=== PATIENT | male | born 1950 | race Caucasian/White ===

== ENCOUNTER → 2016-09-05 | Outpatient (CLI) | payer BC ==
[~2016-09-05] MED LIST: BIOF500T; CHOL1CAP67 PO; CYAN10004 PO; LOSA1TAB38 PO; MULT-884; NRV/5 PEG; OMEGCAP2 PO; OXYC-57 PO; REDCAP2 PO; ZNT/150 PO
--- NOTE | 2016-09-05 08:19 | DIAGNOSTIC IMAGING REPORT ---
ABDOMEN COMPLETE (US) CLINICAL HISTORY: Abnormal liver function tests. Leg pain. COMPARISON STUDY: Biliary ultrasound dated 01/08/2014 FINDINGS: The pancreas is poorly visualized. The liver is of increased echogenicity, likely secondary to hepatic steatosis. There is suspected focal fatty sparing adjacent to the gallbladder fossa. Multiple gallstones are visualized. There is no ductal dilatation. The common bile duct measures 5 mm. There is splenomegaly (14.1 cm) The right kidney measures 12.9 cm in length. The left kidney measures 13.4 cm in length. No renal masses are visualized. There is no hydronephrosis. There is no evidence of abdominal aortic dilatation. No abnormality IVC are visualized. IMPRESSION: 1. Cholelithiasis. No evidence of ductal dilatation 2. Increased hepatic echogenicity, most likely secondary to hepatic steatosis 3. Splenomegaly 4. Suboptimal visualization of the pancreas Electronically signed by: Nhan Spaulding M.D. 09/05/2016 8:17 AM
[2016-09-05 09:41] LABS: BASO % 0.4 %; BASO ABS # 0.02 K/uL (0-0.2); COMPLETE YES; EOS % 3.1 %; HEMATOCRIT 44.7 % (42-52); IG% 0.2 %; LYMPH % 21.4 %; LYMPH ABS # 1.16 K/uL (1.2-3.4); MEAN CELL VOLUME 90.9 fL (80-100); MEAN CORPUSCULAR HEMOGLOBIN 32.9 pg (25-34); MEAN CORPUSCULAR HGB CONC 36.2 g/dl (32-36); MEAN PLATELET VOLUME 10.8 fL (7.4-10.4); MONO % 9.4 %; NEUT % 65.5 %; PLATELET COUNT 151 K/uL (130-400); RED BLOOD COUNT 4.92 M/uL (4.7-6.1); WHITE BLOOD COUNT 5.43 K/uL (4.8-10.8)
[2016-09-05 09:54] LABS: ESTIMATED AVERAGE GLUCOSE 97 mg/dl; HA1C FLAG Normal (Normal)
[2016-09-05 09:57] LABS: ALT/SGPT 48 U/L (12-78); BLOOD UREA NITROGEN 20 mg/dl (7-18); BUN/CREATININE RATIO 18.5 (10-20); CALCIUM 8.9 mg/dl (8.5-10.1); CARBON DIOXIDE 22 mmol/L (21-32); CHLORIDE 111 mmol/L (98-107); CHOLESTEROL 200 mg/dl (0-200); GLUCOSE 117 mg/dl (70-99); POTASSIUM 4.1 mmol/L (3.5-5.1); SODIUM 144 mmol/L (136-145); TRIGLYCERIDES 109 mg/dl (0-150); VERY LOW DENSITY LIPOPROT CALC 22 mg/dl
[2016-09-05 10:04] LABS: URINE APPEARANCE CLEAR (CLEAR); URINE BILIRUBIN NEG (NEG); URINE COLOR YELLOW; URINE NITRITE NEG (NEG); URINE SPECIFIC GRAVITY 1.024 (1.000-1.030); UROBILINOGEN NEG (NEG)
[2016-09-05 10:08] LABS: ALB/GLOB RATIO 1.3 (0.9-2); ALKALINE PHOSPHATASE 59 U/L (45-117); AST/SGOT 19 U/L (15-37); CHOLESTEROL/HDL RATIO 6.3; HDL CHOLESTEROL 32 mg/dl; LDL CHOLESTEROL CALCULATED 146 mg/dl
[2016-09-05 10:17] LABS: MANUAL MICROSCOPIC REQUIRED? NO; REVIEW REQ? NO
== END | disposition home or self-care (01) ==
LOC: C.ULTR 07:01
PROVIDERS: ATTEND Internal Medicine
DX: K76.0 Fatty (change of) liver, not elsewhere classified (principal); R10.9 Unspecified abdominal pain; R79.89 Other specified abnormal findings of blood chemistry; K80.20 Calculus of gallbladder without cholecystitis without obstruction; R93.2 Abnormal findings on diagnostic imaging of liver and biliary tract; R16.1 Splenomegaly, not elsewhere classified

== ENCOUNTER 2016-09-08 08:21 | Emergency (ER) | payer BC ==
[~2016-09-08] VITALS: Ht 195.6 cm; Wt 115.9 kg
[~2016-09-08 08:21] MED LIST changes: -OXYC-57 PO
[2016-09-08 08:24] VITALS: TEMP 36.8; Ht 195.6 cm; Wt 115.9 kg
--- NOTE | 2016-09-08 09:20 | EMERGENCY ROOM VISIT NOTE ---
History Report prepared by Juan Antonio: Vijaya Goodman Under the Supervision of: Dr. Vaibhav Barrientos M.D. First contact with patient: 09:02 Chief Complaint: ABDOMINAL PAIN Stated Complaint: RIGHT ABD. PAIN Nursing Triage Summary: right side abdominal pain for the past 4 weeks. "If I move the wrong way it will put me to my knees." I had ultrasound and blood work done this week and everything was normal. History of Present Illness The patient is a 65 year old male who presents to the Emergency Room with complaints of intermittent right sided abdominal pain that began four weeks ago. He currently rates his discomfort as a 7/10 in severity, stating that his pain this week has become sharp in nature. The patient states that he had an ultrasound and blood work done this week, but notes that everything came back normal. He states that the pain seems to be positional, noting that he typically can go about daily strenuous activities, but states that if he twists the wrong way, he develops the pain. The patient states that after working he twisted the wrong way and noted difficulty going home. He states that lying flat on his back worsens the pain. The patient additionally notes that he bent over to put his shoes on last evening and noted that he developed the pain. He states that he has a CT scan scheduled for next week. The patient states that he doesn't typically eat fried, fatty foods. He states that he has been having more reflux recently. The patient denies his discomfort today being similar to his history of reflux. Source of History: patient Onset: four weeks ago Position: abdomen (right sided) Symptom Intensity: 7/10 Quality: sharp Timing: intermittent Review of Systems All systems have been listed, reviewed, and are negative other than those previously mentioned. Please see Additional Medical History Sheet. Past Medical & Surgical Medical Problems: (1) Hypertension Surgical Problems: (1) S/P hernia repair (2) S/P knee surgery Family History Diabetes mellitus Heart disease Hypertension Social History Smoking Status: Never Smoker Smokeless Tobacco Use: No Alcohol Use: none Marital Status: Housing Status: lives with significant other Occupation Status: retired Current/Historical Medications Scheduled Amlodipine Besylate (Amlodipine Besylate), 2.5 MG PEG DAILY Losartan Potassium (Cozaar), 100 MG PO DAILY Ranitidine Hcl (Zantac), 150 MG PO BID Scheduled PRN Oxycodone/Acetaminophen 5MG/325MG (Percocet 5MG/325MG), 1-2 TABLETS PO Q4H PRN for Pain Allergies Coded Allergies: Pravastatin (Verified Allergy, Unknown, ., 09/08/16) Simvastatin (Unverified Allergy, Unknown, UNKNOWN, 09/08/16) Physical Exam Vital Signs Date Time Temp Pulse Resp B/P Pulse Ox O2 Delivery O2 Flow Rate FiO2 09/08/16 12:42 67 18 150/80 98 09/08/16 11:55 66 18 148/79 96 Room Air 09/08/16 10:02 59 18 156/80 98 Room Air 09/08/16 08:24 36.8 73 18 144/81 98 Room Air Physical Exam GENERAL: Patient awake, alert, oriented x 3. Patient follows commands. Patient does not appear toxic. Patient is adequately hydrated and well- nourished. SKIN: No erythema, pallor, cyanosis or rash HEENT: Normal head, pupils equal, reactive to light and accommodation. LUNGS: Clear to auscultation. No wheezes, no rales, no rhonchi. HEART: No murmurs. No gallops. No rubs ABDOMEN: No masses, no rebound, no hepatomegaly or splenomegaly. EXTREMITIES: No signs of trauma or infection. No pedal or pretibial edema. No calf or thigh tenderness. NEUROLOGIC: Cranial nerves II-XII within normal limits. No gross motor sensory function deficits. Medical Decision & Procedures ER Provider Diagnostic Interpretation: CT results are interpretations by the radiologist and per my review. CT OF THE ABDOMEN AND PELVIS WITH CONTRAST CLINICAL HISTORY: Right-sided abdominal pain. COMPARISON STUDY: Abdominal ultrasound September 05, 2016. TECHNIQUE: Following IV administration of 117 mL of Optiray-320, axial images of the abdomen and pelvis were obtained from the lung bases to the proximal femurs. Images were reviewed in the axial, sagittal, and coronal planes. IV contrast was administered without complication. Oral contrast was administered. CT DOSE: 1258.24 mGy.cm FINDINGS: The heart is mildly enlarged. There is suspected fatty infiltration of the liver. No hepatic lesions are identified. There is borderline splenomegaly. Multiple gallstones are noted within the gallbladder. The gallbladder is not distended. There is no pericholecystic infiltration. The adrenal glands, kidneys and pancreas are normal. There is no hydronephrosis or hydroureter. No ureteral calculi are identified. The caliber and wall thickness of small and large bowel are normal. The appendix is normal. There is extensive sigmoid diverticulosis without evidence for acute diverticulitis. There is no ascites or lymphadenopathy. A fat-containing left inguinal hernia is present. IMPRESSION: 1. No acute process within the abdomen or pelvis. 2. Cholelithiasis. 3. Fat-containing left inguinal hernia. 4. Extensive colonic diverticulosis without evidence for acute diverticulitis. Electronically signed by: Vinny Mcgee M.D. 09/08/2016 12:01 PM Dictated Date/Time: 09/08/2016 11:54 AM Laboratory Results 09/08/16 09:00 Red Blood Count 4.88, Mean Corpuscular Volume 90.0, Mean Corpuscular Hemoglobin 33.0, Mean Corpuscular Hemoglobin Concent 36.7, Mean Platelet Volume 10.0, Neutrophils (%) (Auto) 68.0, Lymphocytes (%) (Auto) 19.8, Monocytes (%) (Auto) 9.1, Eosinophils (%) (Auto) 2.4, Basophils (%) (Auto) 0.5, Neutrophils # (Auto) 3.96, Lymphocytes # (Auto) 1.15, Monocytes # (Auto) 0.53, Eosinophils # (Auto) 0.14, Basophils # (Auto) 0.03 09/08/16 09:00 Test 09/08/16 08:47 09/08/16 09:00 Urine Color YELLOW Urine Appearance CLEAR (CLEAR) Urine pH 5.0 (4.5-7.5) Urine Specific [place] 1.013 (1.000-1.030) Urine Protein NEG (NEG) Urine Glucose (UA) NEG (NEG) Urine Ketones NEG (NEG) Urine Occult Blood NEG (NEG) Urine Nitrite NEG (NEG) Urine Bilirubin NEG (NEG) Urine Urobilinogen NEG (NEG) Urine Leukocyte Esterase NEG (NEG) White Blood Count 5.82 K/uL (4.8-10.8) Red Blood Count 4.88 M/uL (4.7-6.1) Hemoglobin 16.1 g/dL (14.0-18.0) Hematocrit 43.9 % (42-52) Mean Corpuscular Volume 90.0 fL (80-100) Mean Corpuscular Hemoglobin 33.0 pg (25-34) Mean Corpuscular Hemoglobin Concent 36.7 g/dl (32-36) Platelet Count 135 K/uL (130-400) Mean Platelet Volume 10.0 fL (7.4-10.4) Neutrophils (%) (Auto) 68.0 % Lymphocytes (%) (Auto) 19.8 % Monocytes (%) (Auto) 9.1 % Eosinophils (%) (Auto) 2.4 % Basophils (%) (Auto) 0.5 % Neutrophils # (Auto) 3.96 K/uL (1.4-6.5) Lymphocytes # (Auto) 1.15 K/uL (1.2-3.4) Monocytes # (Auto) 0.53 K/uL (0.11-0.59) Eosinophils # (Auto) 0.14 K/uL (0-0.5) Basophils # (Auto) 0.03 K/uL (0-0.2) RDW Standard Deviation 42.6 fL (36.4-46.3) RDW Coefficient of Variation 13.2 % (11.5-14.5) Immature Granulocyte % (Auto) 0.2 % Immature Granulocyte # (Auto) 0.01 K/uL (0.00-0.02) Anion Gap 9.0 mmol/L (3-11) Est Creatinine Clear Calc Drug Dose 84.3 ml/min Estimated GFR () 72.1 Estimated GFR (Non- 62.2 BUN/Creatinine Ratio 17.1 (10-20) Calcium Level 9.0 mg/dl (8.5-10.1) Total Bilirubin 1.0 mg/dl (0.2-1) Aspartate Amino Transf (AST/SGOT) 19 U/L (15-37) Alanine Aminotransferase (ALT/SGPT) 46 U/L (12-78) Alkaline Phosphatase 57 U/L (45-117) Total Protein 7.0 gm/dl (6.4-8.2) Albumin 4.0 gm/dl (3.4-5.0) Globulin 3.0 gm/dl (2.5-4.0) Albumin/Globulin Ratio 1.3 (0.9-2) Laboratory results as stated above per my review. ED Course 0902: Past medical records reviewed. The patient was evaluated in room A4B. A complete history and physical examination was performed. 1216: I reevaluated the patient and he is resting comfortably. I discussed the exam findings with him and I discussed the treatment plan. He verbalized complete understanding and agreement. He is ready to go home. Medical Decision Nurses notes reviewed. Medical history sheet reviewed. Differential diagnosis includes but is not limited to: cholelithiasis, cholecystitis, appendicitis, bowel obstruction, musculoskeletal pain, pancreatitis. The patient had a previous ultrasound which was reviewed. Multiple labs and further imaging were performed today. Please see above. The patient does not appear to have other significant pathology other than cholelithiasis and diverticulosis. Liver enzymes are not elevated. White count is not elevated. I believe his pain is coming from his gallbladder. We discussed keeping a food diary. The patient will be given pain medication and will be encouraged to follow-up with his family physician on Saturday. The patient may need surgery in the near future. [place] Drug Monitoring Program Search Results: patient reviewed within database, no issues identified Impression Primary Impression: Cholelithiasis Scribe Attestation The scribe's documentation has been prepared under my direction and personally reviewed by me in its entirety. I confirm that the note above accurately reflects all work, treatment, procedures, and medical decision making performed by me. Departure Information Dispostion Home / Self-Care Prescriptions Oxycodone/Acetaminophen 5MG/325MG (PERCOCET 5MG/325MG) Tab 1-2 TABLETS PO Q4H Y for Pain, #20 TAB Prov: Vaibhav Barrientos M.D. 09/08/16 Referrals Jasvir Garber M.D. (PCP) Forms HOME CARE DOCUMENTATION FORM, IMPORTANT VISIT INFORMATION, My [facility] Patient Instructions A Signature Page Additional Instructions 1-2 Percocet every 4 hours as needed for moderate to severe pain. Follow-up with Dr. Garber on Saturday. Return here sooner if your pain is getting worse or you develop any fever.
[2016-09-08 09:21] LABS: BASO % 0.5 %; BASO ABS # 0.03 K/uL (0-0.2); COMPLETE YES; EOS % 2.4 %; HEMATOCRIT 43.9 % (42-52); IG% 0.2 %; LYMPH % 19.8 %; LYMPH ABS # 1.15 K/uL (1.2-3.4); MEAN CORPUSCULAR HGB CONC 36.7 g/dl (32-36); MONO % 9.1 %; PLATELET COUNT 135 K/uL (130-400); RED BLOOD COUNT 4.88 M/uL (4.7-6.1); WHITE BLOOD COUNT 5.82 K/uL (4.8-10.8)
[2016-09-08 09:22] LABS: URINE APPEARANCE CLEAR (CLEAR); URINE BILIRUBIN NEG (NEG); URINE COLOR YELLOW; URINE NITRITE NEG (NEG); URINE SPECIFIC GRAVITY 1.013 (1.000-1.030); UROBILINOGEN NEG (NEG); ZZUR CULT IF INDIC CLEAN CATCH NO
[2016-09-08 09:26] LABS: MANUAL MICROSCOPIC REQUIRED? NO; REVIEW REQ? NO
[2016-09-08 09:31] LABS: BUN/CREATININE RATIO 17.1 (10-20); CREATININE 1.2 mg/dl (0.60-1.40); POTASSIUM 4.3 mmol/L (3.5-5.1)
[2016-09-08 09:34] LABS: ALB/GLOB RATIO 1.3 (0.9-2)
[2016-09-08] MEDS ORDERED: OPTIRAY 320 IV PRN (10:30)
--- NOTE | 2016-09-08 12:02 | DIAGNOSTIC IMAGING REPORT ---
CT OF THE ABDOMEN AND PELVIS WITH CONTRAST CLINICAL HISTORY: Right-sided abdominal pain. COMPARISON STUDY: Abdominal ultrasound September 05, 2016. TECHNIQUE: Following IV administration of 117 mL of Optiray-320, axial images of the abdomen and pelvis were obtained from the lung bases to the proximal femurs. Images were reviewed in the axial, sagittal, and coronal planes. IV contrast was administered without complication. Oral contrast was administered. CT DOSE: 1258.24 mGy.cm FINDINGS: The heart is mildly enlarged. There is suspected fatty infiltration of the liver. No hepatic lesions are identified. There is borderline splenomegaly. Multiple gallstones are noted within the gallbladder. The gallbladder is not distended. There is no pericholecystic infiltration. The adrenal glands, kidneys and pancreas are normal. There is no hydronephrosis or hydroureter. No ureteral calculi are identified. The caliber and wall thickness of small and large bowel are normal. The appendix is normal. There is extensive sigmoid diverticulosis without evidence for acute diverticulitis. There is no ascites or lymphadenopathy. A fat-containing left inguinal hernia is present. IMPRESSION: 1. No acute process within the abdomen or pelvis. 2. Cholelithiasis. 3. Fat-containing left inguinal hernia. 4. Extensive colonic diverticulosis without evidence for acute diverticulitis. Electronically signed by: Vinny Mcgee M.D. 09/08/2016 12:01 PM Dictated Date/Time: 09/08/2016 11:54 AM
[2016-09-08] MEDS ORDERED: OXYC-57 PO (12:31)
[2016-09-08 12:42] VITALS: BP 150/80; PULSE 67; O2SAT 98
== END 2016-09-08 12:45 | disposition home or self-care (01) ==
LOC: C.EDB 08:23 → C.EDA 12:45
DX: K80.20 Calculus of gallbladder without cholecystitis without obstruction (principal); K57.30 Diverticulosis of large intestine without perforation or abscess without bleeding; I10 Essential (primary) hypertension; Z98.890 Other specified postprocedural states; Z79.899 Other long term (current) drug therapy; Z88.8 Allergy status to other drugs, medicaments and biological substances; Z83.3 Family history of diabetes mellitus; Z82.49 Family history of ischemic heart disease and other diseases of the circulatory system

== ENCOUNTER → 2016-09-21 | Outpatient (CLI) | payer BC ==
[~2016-09-21] MED LIST changes: -BIOF500T; -CHOL1CAP67 PO; -CYAN10004 PO; -MULT-884; -OMEGCAP2 PO; +OXYC-57 PO; -REDCAP2 PO
--- NOTE | 2016-09-21 09:24 | DIAGNOSTIC IMAGING REPORT ---
NUCLEAR MEDICINE HEPATOBILIARY SCAN HISTORY: K80.20 [id number] generalized abdominal pain COMPARISON: Abdominal ultrasound 09/05/2016. TECHNIQUE: Immediately following the intravenous administration of mCi Tc-99m Choletec, dynamic anterior abdominal imaging was performed. FINDINGS: Uniform hepatic tracer accumulation is shown. Prompt intrahepatic biliary excretion is seen. The gallbladder and common bile duct are visualized at 15 minutes. Small bowel visualization was slightly delayed at 70 minutes.. IMPRESSION: 1. No evidence for cystic duct obstruction. 2. Slight delay of small bowel visualization. However, no evidence for common bile duct obstruction. Electronically signed by: Doug Parker M.D. 09/21/2016 9:22 AM Dictated Date/Time: 09/21/2016 9:21 AM
== END | disposition home or self-care (01) ==
LOC: C.NUCL 07:35
PROVIDERS: ATTEND Internal Medicine
DX: K80.20 Calculus of gallbladder without cholecystitis without obstruction (principal); R10.9 Unspecified abdominal pain

== ENCOUNTER → 2017-02-12 | Outpatient (CLI) | payer BC | END | disposition home or self-care (01) | LOC: C.LAB1850 15:59 | PROVIDERS: ATTEND Physician Assistant | DX: M79.672 Pain in left foot (principal) ==

== ENCOUNTER → 2017-04-15 | Outpatient (CLI) | payer BC ==
[~2017-04-15] MED LIST changes: -OXYC-57 PO
[2017-04-15 09:36] LABS: BASO % 0.4 %; BASO ABS # 0.02 K/uL (0-0.2); COMPLETE YES; EOS % 3.1 %; HEMATOCRIT 43.9 % (42-52); IG% 0.2 %; LYMPH % 23.8 %; LYMPH ABS # 1.24 K/uL (1.2-3.4); MEAN CELL VOLUME 92.4 fL (80-100); MEAN CORPUSCULAR HEMOGLOBIN 33.5 pg (25-34); MEAN CORPUSCULAR HGB CONC 36.2 g/dl (32-36); MEAN PLATELET VOLUME 10.1 fL (7.4-10.4); MONO % 7.7 %; NEUT % 64.8 %; PLATELET COUNT 135 K/uL (130-400); RED BLOOD COUNT 4.75 M/uL (4.7-6.1)
[2017-04-15 10:00] LABS: ALT/SGPT 46 U/L (12-78); BLOOD UREA NITROGEN 21 mg/dl (7-18); BUN/CREATININE RATIO 18.9 (10-20); CALCIUM 8.9 mg/dl (8.5-10.1); CARBON DIOXIDE 28 mmol/L (21-32); CHLORIDE 106 mmol/L (98-107); CHOLESTEROL 204 mg/dl (0-200); GLUCOSE 107 mg/dl (70-99); POTASSIUM 4.1 mmol/L (3.5-5.1); SODIUM 139 mmol/L (136-145); TRIGLYCERIDES 133 mg/dl (0-150); VERY LOW DENSITY LIPOPROT CALC 27 mg/dl
[2017-04-15 10:03] LABS: ESTIMATED AVERAGE GLUCOSE 97 mg/dl; HA1C FLAG Normal (Normal)
[2017-04-15 10:06] LABS: ALB/GLOB RATIO 1.3 (0.9-2); ALKALINE PHOSPHATASE 53 U/L (45-117); AST/SGOT 20 U/L (15-37); CHOLESTEROL/HDL RATIO 5.8; HDL CHOLESTEROL 35 mg/dl; LDL CHOLESTEROL CALCULATED 142 mg/dl; PROSTATE SPECIFIC ANTIGEN 0.326 ng/ml (0.000-4.000)
== END | disposition home or self-care (01) ==
LOC: C.LAB1850 07:47
PROVIDERS: ATTEND Internal Medicine
DX: K76.0 Fatty (change of) liver, not elsewhere classified (principal); R73.01 Impaired fasting glucose; E78.5 Hyperlipidemia, unspecified; Z12.5 Encounter for screening for malignant neoplasm of prostate

== ENCOUNTER → 2017-11-14 | Outpatient (CLI) | payer BC ==
[2017-11-14 09:47] LABS: ALT/SGPT 51 U/L (12-78); AST/SGOT 18 U/L (15-37); BLOOD UREA NITROGEN 21 mg/dl (7-18); CALCIUM 9.1 mg/dl (8.5-10.1); CARBON DIOXIDE 28 mmol/L (21-32); CHOLESTEROL 198 mg/dl (0-200); CREATININE 1.16 mg/dl (0.60-1.40); GLUCOSE 117 mg/dl (70-99); SODIUM 140 mmol/L (136-145)
[2017-11-14 09:49] LABS: LDL CHOLESTEROL CALCULATED 142 mg/dl
== END | disposition home or self-care (01) ==
LOC: C.LAB1850 07:19
PROVIDERS: ATTEND Internal Medicine
DX: E78.5 Hyperlipidemia, unspecified (principal); I10 Essential (primary) hypertension

== ENCOUNTER 2025-07-14 16:34 | Inpatient (IN) ==
[2025-07-14] MEDS: SODIUM CHLORIDE 0.9% 500 ML IV ONE (17:19)
[2025-07-14] MEDS: ONDANSETRON INJ 2 MG/ML 2 ML VIAL IV STA (17:20)
[2025-07-14] MEDS: KETOROLAC TROMETHAMINE 15 MG/ML VIAL IV STA (17:20)
[2025-07-14 17:37] LABS: Hematocrit (blood only) 43.9 % (42.0-52.0); Hemoglobin 16.2 g/dL (14.0-18.0); Immature Granulocytes # (auto) 0.06 K/uL (0.01-0.20); Immature Granulocytes % (auto) 0.4 %; Mean Corpuscular Hemoglobin 33.1 pg (25.0-34.0); Mean Corpuscular Volume 89.8 fL (80.0-100.0); Platelet Count 143 K/uL (130-400); RDW Standard Deviation 42.9 fL (36.4-46.3); Red Blood Count 4.89 M/uL (4.70-6.10); White Blood Count 16.13 K/ul (4.8-10.8)
[2025-07-14 17:58] LABS: Alanine Aminotransferase 21.0 U/L (7-52); Albumin Level 4.2 gm/dl (3.4-5.0); Alkaline Phosphatase 47.0 U/L (34-104); Anion Gap 8.0 (3-11); Bilirubin,Total 2.8 mg/dl (0.2-1.0); Blood Urea Nitrogen 16.0 mg/dl (6-23); Calcium 9.4 mg/dl (8.6-10.3); Carbon Dioxide 26.0 mmol/L (21-32); Chloride 101.0 mmol/L (98-107); Creatinine Clr Calc Pharmacy 95.7 ml/min; Glucose 138.0 mg/dl (70-99(Fasting)); Lipase 3.0 U/L (11-82); Magnesium 1.8 mg/dl (1.7-2.4); Potassium 4.1 mmol/L (3.5-5.1); Sodium 135.0 mmol/L (136-145); Total Protein 7.1 gm/dl (6.0-8.3)
[2025-07-14 18:09] LABS: INR 1.1 (0.9-1.1); Partial Thromboplastin Time 28 Seconds (21-31); Prothrombin Time 11.9 Seconds (9.0-12.0)
[2025-07-14] MEDS: OPTIRAY 320 100ml IV ONE (18:11)
--- NOTE | 2025-07-14 18:58 | CT Scan Report ---
EXAMINATION: CT of the abdomen and pelvis performed after the administration of IV contrast TECHNIQUE: Helical CT images from the lung bases through the symphysis pubis were obtained with contrast. Coronal and sagittal reformatted images were generated at a workstation for further assessment. Dose reduction techniques were achieved by using automatic exposure control and/or adjustment of mA and/or kV according to patient size and/or use of iterative reconstruction technique. COMPARISON: 07/12/2025 HISTORY: Abdominal pain FINDINGS: Lower chest: No consolidation. No pleural effusion or pneumothorax. Liver: No suspicious liver lesions. Portal veins appear patent. Gallbladder: The gallbladder is distended and filled with stones. Mild free fluid is seen between the gallbladder and liver (note this was not definitely seen on ultrasound). Inflammatory fat stranding surrounds the gallbladder. Spleen: Enlarged measuring 13.9 cm Pancreas: No suspicious pancreatic lesions. The pancreatic duct is not dilated. Adrenal glands: No adrenal nodules. Kidneys: No hydronephrosis or obstructing renal stones. Bladder / Pelvic organs: Unremarkable. Bowel: No bowel obstruction. No abnormal bowel wall thickening. The appendix is unremarkable. Lymph nodes: No retroperitoneal, mesenteric, or pelvic lymphadenopathy. Peritoneum / Retroperitoneum: Mild free fluid in the pelvis. Vessels: No infrarenal aortic aneurysm. Moderate to heavy aortoiliac calcification. Bones and soft tissues: No suspicious lesion in the bones. IMPRESSION: Findings on CT, in conjunction with ultrasound, are consistent with acute cholecystitis. Electronically signed by Yassine Rosales 07-14-2025 6:58 PM
--- NOTE | 2025-07-14 19:00 | Ultrasound Report ---
EXAMINATION: US abdomen right upper quadrant COMPARISON: None HISTORY: Abdominal pain TECHNIQUE: The right upper quadrant of the abdomen was scanned in standard fashion with specialized ultrasound transducers using both sosa scale and limited color Doppler techniques. Findings: Liver: The liver demonstrates normal homogeneous echotexture. No evidence of a focal hepatic mass or intrahepatic biliary ductal dilatation. The main portal vein is patent with antegrade flow. The liver is enlarged measuring 18.5 cm. Gallbladder: Numerous calcified stones and sludge are noted in the gallbladder. Increased gallbladder distention measuring 4.2 cm transverse. Gallbladder wall does not appear significantly thickened, measuring up to 3 mm. Sonographic Salgado sign performed by the technologist is negative. The patient has reportedly been given pain medication. Bile Ducts: Both the intra- and extrahepatic biliary system are of normal caliber. The common bile duct measures mm in diameter. Pancreas: Not visualized due to shadowing bowel gas Right kidney: Normal echotexture, without mass or hydronephrosis. Right kidney craniocaudal dimension: Fluid: No evidence of ascites or pleural effusions. Impression: 1. Findings on ultrasound, in conjunction with CT are consistent with acute cholecystitis. Electronically signed by Yassine Rosales 07-14-2025 6:58 PM
[2025-07-14] MEDS: cefTRIAXone SODIUM 2,000 MG/50 ML BAG IV STA (19:19)
--- NOTE | 2025-07-14 20:08 | History & Physical Report ---
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 His evaluation is significant for leukocytosis 16.13 with bilirubin of 2.9 and direct bilirubin 0.6, otherwise LFTs normal. Lipase is 3. CTAP and GBUS both consistent with acute cholecystitis. Admission for management of acute cholecystitis with IV antibiotics, failure outpatient treatment. 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 Returning for worsening abdominal pain with N/V. Elevated WBC + bilirubin (prior bili elevations as well, CTAP w/o dilated ducts). Not meeting criteria for sepsis. Received ceftriaxone + metro IV in ED. Was placed on Augmentin, took 2 doses. Admission for IV abx. - CBC leukocytosis 16.13; total bilirubin 2.8, direct bilirubin 0.6, LFTs otherwise unremarkable; lipase 3 - CBC, BMP, LFTs am - CTAP and GBUS consistent with acute cholecystitis - NPO - IVF LR @ 125 mL/h (last echo 10/2024, EF 65 to 70%) - Zofran prn N/V - Acetaminophen prn fever/pain, Dilaudid prn severe pain - Metronidazole + cefepime IV -- recent hospital visit, slightly broader coverage at admission -- adjust as medically appropriate - Gen sx consulted - appreciate input + recs #HTN- Pressures stable at time of admission; Carvedilol, losartan - continue once diet ordered #Radiculopathy- Gabapentin - continue once diet ordered #HLD- Rosuvastatin - continue once diet ordered Dispo: Admit, med/sx VTE Prophylaxis: SCDs - add chemical prophylaxis as appropriate, pending ? surgical interventions This document was dictated utilizing [employer]. Please excuse any grammatical errors that may be secondary to use of this software. 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 He was seen in the ED for such and diagnosed with diverticulosis, possible early diverticulitis and sent home on oral antibiotics and pain management. He took 2 days of antibiotics. The day of arrival, in the morning he started to have pain more localized to the right side of his abdomen that was constant in nature, occasionally worsening in waves. At its worst, it is a 7 out of 10 on the pain scale and at present it is around a 6 out of 10 on the same pain scale. He has had nausea but no vomiting. No diarrhea or constipation. He has been taking his temperature throughout the day, no fevers reported. He denies chest pain, SOB, palpitations, vomiting/diarrhea/constipation, URI symptoms, LUTS, fever/chills, numbness/tingling, weakness, syncope, or falls. Recalls having similar pain approximately 5 years ago and was diagnosed with cholelithiasis that was nonobstructing in nature. Has not had something of this significance previously however. ED evaluation reveals CBC with leukocytosis 16.13, H&H stable; PT/INR; CMP sodium 135, ratio 20.8, glucose 138, bilirubin 2.9, direct bilirubin 0.6, lipase 3; CTAP acute cholecystitis; GBUS acute cholecystitis.; Provided with 500 mL NSS, Zofran 4 mg IV, metronidazole 50 mg IV, ketorolac 15 mg IV, and ceftriaxone 2 g IV in ED. Please see Dr. Del Angel's attestation for adjustments/additions to treatment plan. Allergies Allergy/AdvReac Type Severity Reaction Status Date / Time pravastatin AdvReac Intermediate Muscle Pain Verified 07/16/25 11:20 simvastatin AdvReac Intermediate Muscle Pain Verified 07/16/25 11:20 Home Medications Medication Instructions Recorded Confirmed Type cyanocobalamin (vitamin B-12) 1,000 mcg PO QAM 12/08/18 07/14/25 History 1,000 mcg tablet (Vitamin B-12) [id number] 5 mg-zeaxanth 1 cap PO DAILY 07/17/24 07/14/25 History 1 mg-bilberry 7.5 mg-herbal capsule ([email or web address] Formula) cholecalciferol (vitamin D3) 50 50 mcg PO DAILY 07/24/24 07/14/25 History mcg (2,000 unit) capsule losartan 100 mg tablet 100 mg PO QAM #90 tabs 09/30/24 07/14/25 Rx doxycycline hyclate 100 mg capsule 100 mg PO BID PRN tick bites 02/04/25 07/14/25 History gabapentin 100 mg capsule 100 mg PO HS #30 caps 05/21/25 07/14/25 Rx carvedilol 6.25 mg tablet 6.25 mg PO BID #60 tabs 06/03/25 07/14/25 Rx amoxicillin 875 mg-potassium 1 tab PO BID #14 tabs 07/13/25 07/14/25 Rx clavulanate 125 mg tablet metoclopramide HCl 5 mg tablet 5 mg PO DAILY PRN nausea and 07/13/25 07/14/25 Rx vomiting #20 tabs oxycodone 5 mg tablet 5 mg PO Q6H PRN pain #10 tabs 07/13/25 07/14/25 Rx rosuvastatin 20 mg tablet 20 mg PO HS 07/14/25 07/14/25 History Past Med/Surg History Problem List S/P laparoscopic cholecystectomy Total bilirubin, elevated Cholecystitis, acute (Acute) Nausea (Acute) Sigmoid thickening (Acute) Abdominal pain (Acute) Mild ascending aorta dilatation Piriformis syndrome of left side Trochanteric bursitis History of atrial fibrillation 2002 in s/o thyroid storm. had successful cardioversion. Myofascial pain Pruritus Concern about skin cancer without diagnosis Rash and nonspecific skin eruption Lumbar degenerative disc disease Spinal stenosis of lumbar region Vitamin B12 deficiency Elevated ferritin Hyperglycemia History of colon polyps Hypertension (Chronic) Lumbar radiculopathy (Acute) Hyperlipidemia (Acute) GERD without esophagitis (Acute) Hip pain Medical History Encounter for pre-operative examination Sciatica Hypertension Thyroid disease History of gout Osteoarthritis History of migraine History of cardioversion Atrial fibrillation DX >20 YEARS AGO - EPISODE X 1 2/2 THYROID STORM - S/P CARDIOVERSION - NO ISSUES SINCE - DOES NOT FOLLOW W/ CARDIO History of thyroid storm >20 YEARS AGO - DENIES CURRENT ISSUES Hyperlipidemia Hypertension Surgical History History of left inguinal hernia repair History of colonoscopy with polypectomy History of umbilical hernia repair History of wisdom tooth extraction History of hand surgery LEFT Status post arthroscopic surgery of right knee History of detached retina repair History of cataract surgery History of repair of rotator cuff LEFT Family History Brother Family history of diabetes mellitus Mother Family history of diabetes mellitus Brother Family history of esophageal cancer Myocardial infarction Family/Other No problems noted. 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: No Beliefs That Will Affect Care: None marital status: Current Living Situation: Spouse current occupational status: retired How many Children do You have: 2 Other Information That Helps Us Care for You: No Feels Safe at Home: Yes Safety Concerns: Feels Safe At This Time Childhood Exposure to Second-Hand Smoke: Yes Diet: regular Dental Care, Regularly: Yes Physical Activity Frequency: Daily Physical Activity Frequency Comment: yard work/ shop work/ walking Seatbelt Use: always Sunscreen Use: Yes (sometimes) Assistive Devices: Cane Review of Systems Review of Systems: All systems reviewed & are unremarkable except as noted in Subjective Physical Exam Physical Exam: General: No acute distress Skin: Warm and dry Head: Normocephalic, atraumatic Eyes: PERRL, conjunctivae clear, sclera non-icteric ENT: External ear and ear canal without swelling; nose atraumatic; good dentition, tongue normal appearance, pharynx normal Neck: Supple, no LAD Cardio: RRR, no M/G/R, S1 and S2 normal Resp: No respiratory distress, Lungs CTA in all lobes bilaterally, no wheezes, rales, or rhonchi Abdomen: Soft, symmetric, mild tenderness RUQ; No masses or hepatosplenomegaly; Bowel sounds normoactive MSK: No deformities; pulses palpable and equal; no edema. Neuro: Awake, alert; Sensation intact bilaterally; CN grossly intact Psych: Appropriate mood and affect; good judgement and insight. Patient's present in room at time of visit. Results & Data Results & Data Vital Signs (Past 12 Hours) Vital Signs Temp Pulse Pulse Resp BP BP Pulse Ox 07/14/25 18:00 70 17 167/100 H 90 07/14/25 17:10 73 18 92 07/14/25 17:10 73 21 166/92 H 92 07/14/25 16:57 79 07/14/25 16:42 36.4 C L 85 18 154/89 H 92 O2 Del Method 07/14/25 18:00 Room Air 07/14/25 17:10 Room Air 07/14/25 17:10 Room Air 07/14/25 16:57 07/14/25 16:42 Room Air Laboratory Results 07/14/25 17:20 WBC 16.13 H RBC 4.89 Hgb 16.2 Hct 43.9 MCV 89.8 MCH 33.1 MCHC 36.9 H RDW Std Deviation 42.9 RDW Coeff of Andrea 13.2 Plt Count 143 MPV 10.2 Immature Gran % (Auto) 0.4 Neut % (Auto) 89.0 Lymph % (Auto) 3.2 Coleman % (Auto) 7.1 Eos % (Auto) 0.1 Baso % (Auto) 0.2 Neut # (Auto) 14.37 H Lymph # (Auto) 0.51 L Coleman # (Auto) 1.15 H Eos # (Auto) 0.01 Baso # (Auto) 0.03 Immature Gran # (Auto) 0.06 PT 11.9 INR 1.1 APTT 28 PTT Ratio 1.0 Sodium 135 L Potassium 4.1 Chloride 101 Carbon Dioxide 26 Anion Gap 8 BUN 16 Creatinine 0.77 D Est Cr Clr Drug Dosing 95.7 eGFR 92.78 BUN/Creatinine Ratio 20.8 H Glucose 138 H Calcium 9.4 Magnesium 1.8 Total Bilirubin 2.8 H D Direct Bilirubin 0.6 H AST 15 ALT 21 Alkaline Phosphatase 47 Total Protein 7.1 Albumin 4.2 Lipase 3 L Diagnostic Findings Abdomen/Pelvis CT 07/14/25 16:55 EXAMINATION: CT of the abdomen and pelvis performed after the administration of IV contrast TECHNIQUE: Helical CT images from the lung bases through the symphysis pubis were obtained with contrast. Coronal and sagittal reformatted images were generated at a workstation for further assessment. Dose reduction techniques were achieved by using automatic exposure control and/or adjustment of mA and/or kV according to patient size and/or use of iterative reconstruction technique. COMPARISON: 07/12/2025 HISTORY: Abdominal pain FINDINGS: Lower chest: No consolidation. No pleural effusion or pneumothorax. Liver: No suspicious liver lesions. Portal veins appear patent. Gallbladder: The gallbladder is distended and filled with stones. Mild free fluid is seen between the gallbladder and liver (note this was not definitely seen on ultrasound). Inflammatory fat stranding surrounds the gallbladder. Spleen: Enlarged measuring 13.9 cm Pancreas: No suspicious pancreatic lesions. The pancreatic duct is not dilated. Adrenal glands: No adrenal nodules. Kidneys: No hydronephrosis or obstructing renal stones. Bladder / Pelvic organs: Unremarkable. Bowel: No bowel obstruction. No abnormal bowel wall thickening. The appendix is unremarkable. Lymph nodes: No retroperitoneal, mesenteric, or pelvic lymphadenopathy. Peritoneum / Retroperitoneum: Mild free fluid in the pelvis. Vessels: No infrarenal aortic aneurysm. Moderate to heavy aortoiliac calcification. Bones and soft tissues: No suspicious lesion in the bones. IMPRESSION: Findings on CT, in conjunction with ultrasound, are consistent with acute cholecystitis. Electronically signed by Yassine Rosales 07-14-2025 6:58 PM Gallbladder Ultrasound 07/14/25 17:11 EXAMINATION: US abdomen right upper quadrant COMPARISON: None HISTORY: Abdominal pain TECHNIQUE: The right upper quadrant of the abdomen was scanned in standard fashion with specialized ultrasound transducers using both sosa scale and limited color Doppler techniques. Findings: Liver: The liver demonstrates normal homogeneous echotexture. No evidence of a focal hepatic mass or intrahepatic biliary ductal dilatation. The main portal vein is patent with antegrade flow. The liver is enlarged measuring 18.5 cm. Gallbladder: Numerous calcified stones and sludge are noted in the gallbladder. Increased gallbladder distention measuring 4.2 cm transverse. Gallbladder wall does not appear significantly thickened, measuring up to 3 mm. Sonographic Salgado sign performed by the technologist is negative. The patient has reportedly been given pain medication. Bile Ducts: Both the intra- and extrahepatic biliary system are of normal caliber. The common bile duct measures mm in diameter. Pancreas: Not visualized due to shadowing bowel gas Right kidney: Normal echotexture, without mass or hydronephrosis. Right kidney craniocaudal dimension: Fluid: No evidence of ascites or pleural effusions. Impression: 1. Findings on ultrasound, in conjunction with CT are consistent with acute cholecystitis. Electronically signed by Yassine Rosales 07-14-2025 6:58 PM Medications Administered 500 mL NSS Zofran 4 mg IV Metronidazole 50 mg IV Ceftriaxone 2 g IV Ketorolac 50 mg IV Code Status & VTE Plan Code Status Full Supervising Physician Co-Signing Physician Notes Attending addendum: I have physically seen this patient, have supervised the CELESTINA's activities, and agree with the H&P unless as otherwise noted. Assessment and Plan: The patient is a 74-year-old male with past medical history including hypertension, GERD, hyperlipidemia, lumbar radiculopathy, B12 deficiency, mild ascending aortic dilation, and diverticulitis. He presents to the emergency department with worsening abdominal pain over the past 2 days. Workup in the emergency department included CT scan of abdomen pelvis and gallbladder ultrasound, both consistent with acute cholecystitis. Laboratory showed elevated WBC of 16.13 and elevated bilirubin of 2.9 and direct bilirubin 0.6. Lipase is normal at 3. Patient was referred for evaluation for admission to the [facility] with consult to general surgery. Acute cholecystitis- As noted on CT scan abdomen pelvis and gallbladder ultrasound NPO LR at 125 mL/h Zofran 4 mg IV every 6 hours as needed Acetaminophen 1 g IV every 8 hours as needed for mild pain or fever Dilaudid 0.25 mg IV every 3 hours as needed for moderate to severe pain Cefepime and Flagyl IV Consult general surgery Hypertension- Resuming carvedilol and losartan after surgery. Hyperlipidemia- Resume rosuvastatin after surgery Radiculopathy- Resume gabapentin after surgery PG Care Time/CCT Total # of Minutes Spent Total Time Spent with Patient: Total time spent is greater than 50% in coordination of care (as documented) at patient's floor/unit and/or counseling patient: Coding Level of Care Code 69346 INT INP/OBS CARE MIN Diagnoses Cholecystitis, acute K81.0
[2025-07-14] MEDS ORDERED: ONDANSETRON INJ 2 MG/ML 2 ML VIAL IV PRN (20:41)
[2025-07-14] MEDS: metroNIDAZOLE 500 MG/100 ML BAG IV STA (21:00)
[2025-07-14] MEDS: HYDROmorphone INJ 0.5 MG/0.5 ML SYR IV PRN (21:20)
[2025-07-14] MEDS: ACETAMINOPHEN 1,000 MG/100 ML VIAL IV PRN (21:20)
[2025-07-14] MEDS: MELATONIN 3 MG TAB PO PRN (21:45)
[2025-07-14] MEDS: LACTATED RINGER'S 1,000 ML IV SCH (22:55)
--- NOTE | 2025-07-15 00:47 | Emergency Department Note ---
History of Present Illness General Chief Complaint: Abdominal Pain Stated Complaint: ABD PAIN, NAUSEA Time Seen by Provider: 07/14/25 16:52 History of Present Illness Provider Complaint: abdominal pain Onset (ago): 2 day(s) Pain Consistency: intermittent Location: RUQ Radiation: RLQ Severity: moderate Maximum Pain Intensity: 5 Current Pain Intensity: 5 Quality: + stabbing and + sharp Relieved By: + nothing Exacerbated By: + eating Context: + recent antibiotic use (Patient states he is currently on antibiotics for diverticulitis.); no foreign travel, no possible food poisoning, no sick contacts, no recent surgery/procedure or no recent injury Associated Symptoms: + nausea; no vomiting, no diarrhea, no fever, no chills, no constipation, no dysuria, no hematemesis, no hematuria, no headache, no chest pain and no breathing difficulty Home Medications Medication Instructions Recorded Confirmed Type cyanocobalamin (vitamin B-12) 1,000 mcg PO QAM 12/08/18 07/14/25 History 1,000 mcg tablet (Vitamin B-12) [id number] 5 mg-zeaxanth 1 cap PO DAILY 07/17/24 07/14/25 History 1 mg-bilberry 7.5 mg-herbal capsule ([facility] Formula) cholecalciferol (vitamin D3) 50 50 mcg PO DAILY 07/24/24 07/14/25 History mcg (2,000 unit) capsule losartan 100 mg tablet 100 mg PO QAM #90 tabs 09/30/24 07/14/25 Rx doxycycline hyclate 100 mg capsule 100 mg PO BID PRN tick bites 02/04/25 07/14/25 History gabapentin 100 mg capsule 100 mg PO HS #30 caps 05/21/25 07/14/25 Rx carvedilol 6.25 mg tablet 6.25 mg PO BID #60 tabs 06/03/25 07/14/25 Rx amoxicillin 875 mg-potassium 1 tab PO BID #14 tabs 07/13/25 07/14/25 Rx clavulanate 125 mg tablet metoclopramide HCl 5 mg tablet 5 mg PO DAILY PRN nausea and 07/13/25 07/14/25 Rx vomiting #20 tabs oxycodone 5 mg tablet 5 mg PO Q6H PRN pain #10 tabs 07/13/25 07/14/25 Rx rosuvastatin 20 mg tablet 20 mg PO HS 07/14/25 07/14/25 History Allergies Allergy/AdvReac Type Severity Reaction Status Date / Time pravastatin AdvReac Intermediate Muscle Pain Verified 07/14/25 19:33 simvastatin AdvReac Intermediate Muscle Pain Verified 07/14/25 19:33 Past Med/Surg History Problem List (Updated 07/15/25 @ 00:53 by Jorge Bermudez MD) Cholecystitis, acute (Acute) Nausea (Acute) Sigmoid thickening (Acute) Abdominal pain (Acute) Mild ascending aorta dilatation Piriformis syndrome of left side Trochanteric bursitis History of atrial fibrillation 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 had successful cardioversion. Myofascial pain Pruritus Concern about skin cancer without diagnosis Rash and nonspecific skin eruption Lumbar degenerative disc disease Spinal stenosis of lumbar region Vitamin B12 deficiency Elevated ferritin Hyperglycemia History of colon polyps Hypertension (Chronic) Lumbar radiculopathy (Acute) Hyperlipidemia (Acute) GERD without esophagitis (Acute) Hip pain Medical History Encounter for pre-operative examination Sciatica Hypertension Thyroid disease History of gout Osteoarthritis History of migraine History of cardioversion Atrial fibrillation DX >20 YEARS AGO - EPISODE X 1 2/2 THYROID STORM - S/P CARDIOVERSION - NO ISSUES SINCE - DOES NOT FOLLOW W/ CARDIO History of thyroid storm >20 YEARS AGO - DENIES CURRENT ISSUES Hyperlipidemia Hypertension Surgical History History of left inguinal hernia repair History of colonoscopy with polypectomy History of umbilical hernia repair History of wisdom tooth extraction History of hand surgery LEFT Status post arthroscopic surgery of right knee History of detached retina repair History of cataract surgery History of repair of rotator cuff LEFT Family History Brother Family history of diabetes mellitus Mother Family history of diabetes mellitus Brother Family history of esophageal cancer Myocardial infarction Family/Other No problems noted. 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 Beliefs That Will Affect Care: None marital status: Current Living Situation: Spouse current occupational status: retired How many Children do You have: 2 Other Information That Helps Us Care for You: No Feels Safe at Home: Yes Safety Concerns: Feels Safe At This Time Childhood Exposure to Second-Hand Smoke: Yes Diet: regular Dental Care, Regularly: Yes Physical Activity Frequency: Daily Physical Activity Frequency Comment: yard work/ shop work/ walking Seatbelt Use: always Sunscreen Use: Yes (sometimes) Assistive Devices: Cane and Glasses Physical Exam 2 Vital Signs: Vital Signs - 24 hr 07/14/25 16:42 07/14/25 16:57 07/14/25 17:10 Temperature 36.4 C L Temperature Source Temporal Artery Sc an Pulse Rate 85 79 Pulse Rate [Apical ] 73 Pulse Rhythm Pulse Rhythm [Apic al] Regular Pulse Strength [Ap ical] Normal Respiratory Rate 18 21 Respiratory Effort / Characteristics Non-Labored Non-Labored Sponta neous Respiratory Depth Normal Normal Respiratory Patter n Regular Regular Blood Pressure 154/89 H Blood Pressure [Ri ght Arm] 166/92 H Blood Pressure Meagan n 110 Blood Pressure Meagan n [Right Arm] 116 Blood Pressure Pos ition [Right Arm] Pulse Oximetry 92 92 Oxygen Delivery Me thod Room Air Room Air Sepsis Recent Feve r Within 48 Hours No Sepsis New/Unexpla ined Change in Men trey Status N/A Sepsis Action Take n by Nursing No Action Required 07/14/25 17:10 07/14/25 18:00 07/14/25 20:00 Temperature Temperature Source Pulse Rate 73 Pulse Rate [Apical ] 70 77 Pulse Rhythm Regular Pulse Rhythm [Apic al] Regular Regular Pulse Strength [Ap ical] Normal Respiratory Rate 18 17 15 Respiratory Effort / Characteristics Non-Labored Sponta neous Non-Labored Sponta neous Respiratory Depth Normal Normal Respiratory Patter n Regular Regular Blood Pressure Blood Pressure [Ri ght Arm] 167/100 H 159/95 H Blood Pressure Meagan n Blood Pressure Meagan n [Right Arm] 122 116 Blood Pressure Pos ition [Right Arm] Lying Pulse Oximetry 92 90 92 Oxygen Delivery Me thod Room Air Room Air Room Air Sepsis Recent Feve r Within 48 Hours Sepsis New/Unexpla ined Change in Men trey Status Sepsis Action Take n by Nursing Physical Exam: Physical Exam HENT: Exam performed. -Head: Normocephalic and atraumatic. EYES: Conjunctivae and EOM are normal.Right eye exhibits no discharge. Left eye exhibits no discharge. No scleral icterus. NECK: Normal range of motion. Neck supple. No JVD present. No tracheal deviation and normal range of motion present. CV: Normal rate, regular rhythm, normal heart sounds and intact distal pulses. There is no peripheral edema. Palpable radial pulses bue. PULM/CHEST: Effort normal and breath sounds normal. No respiratory distress. No stridor. no wheezes.no rales. ABD: The abdomen is soft.There is tenderness to palpation of the right upper quadrant. There is no rebound, no guarding, Salgado's sign positive and no tenderness at McBurney's point. Rovsig negative MUSC/SKEL: Normal range of motion. There is no peripheral edema, tenderness or deformity. NEURO: Motor and sensation grossly intact. SKIN: Skin is warm and dry. not diaphoretic. Course Course 1651: The patient was evaluated in room B2. A complete history and physical exam was performed Cardiac monitoring: An order was placed for continuous cardiac monitoring. The monitor shows a rate of 70 with sinus rhythm interpreted by hi 1915: Vital signs stable. Labs showed leukocytosis of 16. Hemoglobin 16.2. Coagulation studies are within normal limits. Total bilirubin 2.8 direct bilirubin 0.6. AST 15 ALT 21 lipase within normal limits. Imaging shows cholecystitis. Patient treated with IV antibiotics. Discussed case with general surgery who states to admit to medicine. Administered Medications Hydromorphone HCl (Hydromorphone Inj 0.5 Mg/0.5 Ml Syr) 0.5 mg IV Q3H PRN PRN Reason: Pain (6,7,8,9,10) Stop: 07/28/25 20:40 Last Admin: 07/14/25 21:20 Dose: 0.5 mg Documented By: CARINA Acetaminophen (Ofirmev) 1,000 mg in 100 mls @ 400 mls/hr IV Q8H PRN PRN Reason: Fever/pain Stop: 07/17/25 20:40 Last Infusion: 07/14/25 21:40 Dose: Infused Documented By: Admin: 07/14/25 21:20 Dose: 400 mls/hr Documented By: CARINA Lactated Ringer's (Lr) 1,000 mls @ 125 mls/hr IV .Q8H CHAR Stop: 07/15/25 06:24 Last Admin: 07/14/25 22:55 Dose: 125 mls/hr Documented By: LISANDRO Discontinued Medications Sodium Chloride (Nss) 500 mls @ 999 mls/hr IV .Q31M ONE Stop: 07/14/25 17:25 Last Infusion: 07/14/25 19:06 Dose: Infused Documented By: [facility] Admin: 07/14/25 17:19 Dose: 999 mls/hr Documented By: AIMEE Ceftriaxone Sodium (Rocephin) 2,000 mg in 50 mls @ 100 mls/hr IV NOW STA Stop: 07/14/25 19:38 Last Infusion: 07/14/25 20:24 Dose: Infused Documented By: [facility] Admin: 07/14/25 19:19 Dose: 100 mls/hr Documented By: ELIZABETH Metronidazole (Flagyl) 500 mg in 100 mls @ 100 mls/hr IV NOW STA; Protocol Stop: 07/14/25 20:08 Last Infusion: 07/14/25 22:30 Dose: Infused Documented By: Infusion: 07/14/25 21:42 Dose: 100 mls/hr Documented By: Infusion: 07/14/25 21:20 Dose: 0 mls/hr Documented By: Admin: 07/14/25 21:00 Dose: 100 mls/hr Documented By: CARINA Ioversol (Optiray 320 100ml) 90 ml IV ONCE ONE Stop: 07/14/25 18:12 Last Admin: 07/14/25 18:11 Dose: 90 ml Documented By: RANDY Ketorolac Tromethamine (Ketorolac Tromethamine 15 Mg/Ml Vial) 15 mg IV NOW STA Stop: 07/14/25 16:56 Last Admin: 07/14/25 17:20 Dose: 15 mg Documented By: AIMEE Melatonin (Melatonin 3 Mg Tab) 3 mg PO HS PRN PRN Reason: Sleep Stop: 08/13/25 20:40 Last Admin: 07/14/25 21:45 Dose: 3 mg Documented By: CARINA Ondansetron HCl (Ondansetron Inj 2 Mg/Ml 2 Ml Vial) 4 mg IV NOW STA Stop: 07/14/25 16:56 Last Admin: 07/14/25 17:20 Dose: 4 mg Documented By: AIMEE Medical Decision Making Laboratory Data Attestation: I reviewed the patient's lab results. 07/14/25 17:20 07/14/25 17:20 Lab Results 07/14/25 Range/Units 17:20 WBC 16.13 H (4.8-10.8) K/ul RBC 4.89 (4.70-6.10) M/uL Hgb 16.2 (14.0-18.0) g/dL Hct 43.9 (42.0-52.0) % MCV 89.8 (80.0-100.0) fL MCH 33.1 (25.0-34.0) pg MCHC 36.9 H (32.0-36.0) g/dL RDW Std Deviation 42.9 (36.4-46.3) fL RDW Coeff of Andrea 13.2 (11.5-14.5) % Plt Count 143 (130-400) K/uL MPV 10.2 (9.4-12.4) fL Immature Gran % (Auto) 0.4 % Neut % (Auto) 89.0 % Lymph % (Auto) 3.2 % [place] % (Auto) 7.1 % Eos % (Auto) 0.1 % Baso % (Auto) 0.2 % Neut # (Auto) 14.37 H (1.40-6.50) K/uL Lymph # (Auto) 0.51 L (1.20-3.40) K/uL [place] # (Auto) 1.15 H (0.11-0.59) K/uL Eos # (Auto) 0.01 (0.00-0.50) K/uL Baso # (Auto) 0.03 (0.00-0.20) K/uL Immature Gran # (Auto) 0.06 (0.01-0.20) K/uL PT 11.9 (9.0-12.0) Seconds INR 1.1 (0.9-1.1) APTT 28 (21-31) Seconds PTT Ratio 1.0 Sodium 135 L (136-145) mmol/L Potassium 4.1 (3.5-5.1) mmol/L Chloride 101 (98-107) mmol/L Carbon Dioxide 26 (21-32) mmol/L Anion Gap 8 (3-11) BUN 16 (6-23) mg/dl Creatinine 0.77 D (0.6-1.4) mg/dl Est Cr Clr Drug Dosing 95.7 ml/min eGFR 92.78 BUN/Creatinine Ratio 20.8 H (10-20) Glucose 138 H (70-99(Fasting)) mg/dl Calcium 9.4 (8.6-10.3) mg/dl Magnesium 1.8 (1.7-2.4) mg/dl Total Bilirubin 2.8 H D (0.2-1.0) mg/dl Direct Bilirubin 0.6 H (0-0.2) mg/dl AST 15 (13-39) U/L ALT 21 (7-52) U/L Alkaline Phosphatase 47 (34-104) U/L Total Protein 7.1 (6.0-8.3) gm/dl Albumin 4.2 (3.4-5.0) gm/dl Lipase 3 L (11-82) U/L Imaging Data Radiologist's Impression: Abdomen/Pelvis CT 07/14/25 16:55 EXAMINATION: CT of the abdomen and pelvis performed after the administration of IV contrast TECHNIQUE: Helical CT images from the lung bases through the symphysis pubis were obtained with contrast. Coronal and sagittal reformatted images were generated at a workstation for further assessment. Dose reduction techniques were achieved by using automatic exposure control and/or adjustment of mA and/or kV according to patient size and/or use of iterative reconstruction technique. COMPARISON: 07/12/2025 HISTORY: Abdominal pain FINDINGS: Lower chest: No consolidation. No pleural effusion or pneumothorax. Liver: No suspicious liver lesions. Portal veins appear patent. Gallbladder: The gallbladder is distended and filled with stones. Mild free fluid is seen between the gallbladder and liver (note this was not definitely seen on ultrasound). Inflammatory fat stranding surrounds the gallbladder. Spleen: Enlarged measuring 13.9 cm Pancreas: No suspicious pancreatic lesions. The pancreatic duct is not dilated. Adrenal glands: No adrenal nodules. Kidneys: No hydronephrosis or obstructing renal stones. Bladder / Pelvic organs: Unremarkable. Bowel: No bowel obstruction. No abnormal bowel wall thickening. The appendix is unremarkable. Lymph nodes: No retroperitoneal, mesenteric, or pelvic lymphadenopathy. Peritoneum / Retroperitoneum: Mild free fluid in the pelvis. Vessels: No infrarenal aortic aneurysm. Moderate to heavy aortoiliac calcification. Bones and soft tissues: No suspicious lesion in the bones. IMPRESSION: Findings on CT, in conjunction with ultrasound, are consistent with acute cholecystitis. Electronically signed by Yassine Rosales 07-14-2025 6:58 PM Gallbladder Ultrasound 07/14/25 17:11 EXAMINATION: US abdomen right upper quadrant COMPARISON: None HISTORY: Abdominal pain TECHNIQUE: The right upper quadrant of the abdomen was scanned in standard fashion with specialized ultrasound transducers using both sosa scale and limited color Doppler techniques. Findings: Liver: The liver demonstrates normal homogeneous echotexture. No evidence of a focal hepatic mass or intrahepatic biliary ductal dilatation. The main portal vein is patent with antegrade flow. The liver is enlarged measuring 18.5 cm. Gallbladder: Numerous calcified stones and sludge are noted in the gallbladder. Increased gallbladder distention measuring 4.2 cm transverse. Gallbladder wall does not appear significantly thickened, measuring up to 3 mm. Sonographic Salgado sign performed by the technologist is negative. The patient has reportedly been given pain medication. Bile Ducts: Both the intra- and extrahepatic biliary system are of normal caliber. The common bile duct measures mm in diameter. Pancreas: Not visualized due to shadowing bowel gas Right kidney: Normal echotexture, without mass or hydronephrosis. Right kidney craniocaudal dimension: Fluid: No evidence of ascites or pleural effusions. Impression: 1. Findings on ultrasound, in conjunction with CT are consistent with acute cholecystitis. Electronically signed by Yassine Rosales 07-14-2025 6:58 PM [facility] Narrative 1652: The patient was evaluated in room B2. A complete history and physical exam was performed Cardiac monitoring: An order was placed for continuous cardiac monitoring. The monitor shows a rate of 70 with sinus rhythm interpreted by me 1915: Vital signs stable. Labs showed leukocytosis of 16. Hemoglobin 16.2. Coagulation studies are within normal limits. Total bilirubin 2.8 direct bilirubin 0.6. AST 15 ALT 21 lipase within normal limits. Imaging shows cholecystitis. Patient treated with IV antibiotics. Discussed case with general surgery who states to admit to medicine. Impression & Plan Cholecystitis, acute Discharge Plan Visit Data Chief Complaint: Abdominal Pain Stated Complaint: ABD PAIN, NAUSEA ED Provider: Jorge Bermudez Discharge Problem: Cholecystitis, acute Patient Disposition: Admitted As Inpatient Condition: Fair
[2025-07-15] MEDS: HYDROmorphone INJ 0.5 MG/0.5 ML SYR IV PRN ×2 (03:41→19:58)
[2025-07-15 06:56] LABS: Hematocrit (blood only) 41.0 % (42.0-52.0); Hemoglobin 14.7 g/dL (14.0-18.0); Mean Corpuscular Hemoglobin 32.7 pg (25.0-34.0); Mean Corpuscular Volume 91.3 fL (80.0-100.0); Platelet Count 114 K/uL (130-400); RDW Standard Deviation 44.7 fL (36.4-46.3); Red Blood Count 4.49 M/uL (4.70-6.10); White Blood Count 18.09 K/ul (4.8-10.8)
[2025-07-15 07:16] LABS: Alanine Aminotransferase 20.0 U/L (7-52); Albumin Level 3.6 gm/dl (3.4-5.0); Alkaline Phosphatase 47.0 U/L (34-104); Anion Gap 6.0 (3-11); Bilirubin,Total 2.4 mg/dl (0.2-1.0); Blood Urea Nitrogen 17.0 mg/dl (6-23); Calcium 9.2 mg/dl (8.6-10.3); Carbon Dioxide 30.0 mmol/L (21-32); Chloride 101.0 mmol/L (98-107); Creatinine Clr Calc Pharmacy 91.6 ml/min; Glucose 108.0 mg/dl (70-99(Fasting)); Potassium 4.4 mmol/L (3.5-5.1); Sodium 137.0 mmol/L (136-145); Total Protein 6.3 gm/dl (6.0-8.3)
[2025-07-15] MEDS: metroNIDAZOLE 500 MG/100 ML BAG IV SCH (07:25)
[2025-07-15] MEDS: CEFEPIME 2000MG 2,000 MG/20 ML SYR IV SCH (07:25)
--- NOTE | 2025-07-15 11:19 | Surgery Consultation ---
Date of Consultation July 15, 2025 Assessment & Plan (1) Cholecystitis, acute: (2) Nausea: (3) Total bilirubin, elevated: 74 year old male with acute calculous cholecystitis with elevated total bilirubin and direct bilirubin. LFTs are normal. afebrile. leukocytosis of 16k to 18k today initially presented to ED on Saturday evening due to lower abdominal pain and CT at that time showed possible mild diverticulitis no acute cholecystitis. T. bili was 1.2 (at baseline) presented back to ED last evening with worsening abdominal pain more on the right side with associated nausea and low appetite. Repeat CT scan showing acute calculous cholecystitis. MRI down today so HIDA obtained which showed small bowel activity and CBD activity within 15 and 10 minutes respectively. Will need to repeat labs tomorrow. If t. bili increases will need GI consult and ERCP. If labs trend down tomorrow, will need cholecystectomy. Continue IV Cefepime and flagyl. Continue pain management. Okay for clear liquids and then NPO after midnight. Dr. Reese has seen and examined patient , agrees with above. History of Present Illness Reason for Consultation: acute calculous cholecystitis Requesting Physician: Jorge Bermudez Attending Physician: Arjun Jack MD History of Present Illness Bill is a 74 year old male who initially presented to [facility] ER on Saturday for lower abdominal pain had a CT scan which showed mild diverticulitis of sigmoid colon and was discharged home with oral antibiotics. He then presented back to ED last evening due to increasing abdominal pain more in the Right mid abdomen with associated nausea and decreased appetite. Has not had fevers but some chills. No history of similar pain . Urine has been dark likely due to dehydration as not been eating or drinking much. No blood in stools, black/tarry stools. No chest pain or shortness of breath. History of a-fib in which required cardioversion has not had issue since and is not on any blood thinners. History of umbilical hernia repair years ago, unsure if mesh was used and left inguinal hernia repair. Currently rating pain 5/10, was 9/10 in the ED. Nauseated. Pain controlled with Dilaudid. Allergies Allergy/AdvReac Type Severity Reaction Status Date / Time pravastatin AdvReac Intermediate Muscle Pain Verified 07/14/25 19:33 simvastatin AdvReac Intermediate Muscle Pain Verified 07/14/25 19:33 Home Medications Medication Instructions Recorded Confirmed Type cyanocobalamin (vitamin B-12) 1,000 mcg PO QAM 12/08/18 07/14/25 History 1,000 mcg tablet (Vitamin B-12) [id number] 5 mg-zeaxanth 1 cap PO DAILY 07/17/24 07/14/25 History 1 mg-bilberry 7.5 mg-herbal capsule (Macular Health Formula) cholecalciferol (vitamin D3) 50 50 mcg PO DAILY 07/24/24 07/14/25 History mcg (2,000 unit) capsule losartan 100 mg tablet 100 mg PO QAM #90 tabs 09/30/24 07/14/25 Rx doxycycline hyclate 100 mg capsule 100 mg PO BID PRN tick bites 02/04/25 07/14/25 History gabapentin 100 mg capsule 100 mg PO HS #30 caps 05/21/25 07/14/25 Rx carvedilol 6.25 mg tablet 6.25 mg PO BID #60 tabs 06/03/25 07/14/25 Rx amoxicillin 875 mg-potassium 1 tab PO BID #14 tabs 07/13/25 07/14/25 Rx clavulanate 125 mg tablet metoclopramide HCl 5 mg tablet 5 mg PO DAILY PRN nausea and 07/13/25 07/14/25 Rx vomiting #20 tabs oxycodone 5 mg tablet 5 mg PO Q6H PRN pain #10 tabs 07/13/25 07/14/25 Rx rosuvastatin 20 mg tablet 20 mg PO HS 07/14/25 07/14/25 History Patient History Medical History Encounter for pre-operative examination Sciatica Hypertension Thyroid disease History of gout Osteoarthritis History of migraine History of cardioversion Atrial fibrillation DX >20 YEARS AGO - EPISODE X 1 2/2 THYROID STORM - S/P CARDIOVERSION - NO ISSUES SINCE - DOES NOT FOLLOW W/ CARDIO History of thyroid storm >20 YEARS AGO - DENIES CURRENT ISSUES Hyperlipidemia Hypertension Surgical History History of left inguinal hernia repair History of colonoscopy with polypectomy History of umbilical hernia repair History of wisdom tooth extraction History of hand surgery LEFT Status post arthroscopic surgery of right knee History of detached retina repair History of cataract surgery History of repair of rotator cuff LEFT Family History Brother Family history of diabetes mellitus Mother Family history of diabetes mellitus Brother Family history of esophageal cancer Myocardial infarction Family/Other No problems noted. 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 Beliefs That Will Affect Care: None marital status: Current Living Situation: Spouse current occupational status: retired How many Children do You have: 2 Other Information That Helps Us Care for You: No Feels Safe at Home: Yes Safety Concerns: Feels Safe At This Time Childhood Exposure to Second-Hand Smoke: Yes Diet: regular Dental Care, Regularly: Yes Physical Activity Frequency: Daily Physical Activity Frequency Comment: yard work/ shop work/ walking Seatbelt Use: always Sunscreen Use: Yes (sometimes) Assistive Devices: Cane and Glasses Review of Systems Review of Systems: All systems reviewed & are unremarkable except as noted in HPI & below Physical Exam Constitutional: WD/WN, vitals as above cooperative and comfortable; no acute distress, not ill appearing, not in distress and not diaphoretic Respiratory: normal respiratory effort, lungs clear to auscultation Cardiovascular: RRR, no murmur, no edema Gastrointestinal (Abdomen): Inspection/Auscultation: abdomen normal to inspection and + abdominal surgical scar (inferior to umbilicus); abdomen not distended Percussion/Palpation: + abdomen tender (RUQ, positive Salgado's sign), + guarding (voluntary RUQ on palpation, no peritonitis) and abdomen soft; abdomen not rigid and abdomen not firm Skin: no rashes, warm and dry Psychiatric: Orientation: alert and oriented x 3 Results & Data Vital Signs (Past 12 Hours) Vital Signs Temp Pulse Resp BP Pulse Ox O2 Del Method 07/15/25 07:20 Room Air 07/15/25 07:19 36.5 C 70 18 143/73 H 90 Room Air Laboratory Results 07/15/25 07/14/25 Range/Units 06:11 17:20 WBC 18.09 H 16.13 H (4.8-10.8) K/ul RBC 4.49 L 4.89 (4.70-6.10) M/uL Hgb 14.7 16.2 (14.0-18.0) g/dL Hct 41.0 L 43.9 (42.0-52.0) % MCV 91.3 89.8 (80.0-100.0) fL MCH 32.7 33.1 (25.0-34.0) pg MCHC 35.9 36.9 H (32.0-36.0) g/dL RDW Std Deviation 44.7 42.9 (36.4-46.3) fL RDW Coeff of Andrea 13.2 13.2 (11.5-14.5) % Plt Count 114 L 143 (130-400) K/uL MPV 10.2 10.2 (9.4-12.4) fL Immature Gran % (Auto) 0.4 % Neut % (Auto) 89.0 % Lymph % (Auto) 3.2 % Gregg % (Auto) 7.1 % Eos % (Auto) 0.1 % Baso % (Auto) 0.2 % Neut # (Auto) 14.37 H (1.40-6.50) K/uL Lymph # (Auto) 0.51 L (1.20-3.40) K/uL Gregg # (Auto) 1.15 H (0.11-0.59) K/uL Eos # (Auto) 0.01 (0.00-0.50) K/uL Baso # (Auto) 0.03 (0.00-0.20) K/uL Immature Gran # (Auto) 0.06 (0.01-0.20) K/uL PT 11.9 (9.0-12.0) Seconds INR 1.1 (0.9-1.1) APTT 28 (21-31) Seconds PTT Ratio 1.0 Sodium 137 135 L (136-145) mmol/L Potassium 4.4 4.1 (3.5-5.1) mmol/L Chloride 101 101 (98-107) mmol/L Carbon Dioxide 30 26 (21-32) mmol/L Anion Gap 6 8 (3-11) BUN 17 16 (6-23) mg/dl Creatinine 0.91 0.77 D (0.6-1.4) mg/dl Est Cr Clr Drug Dosing 91.6 95.7 ml/min eGFR 87.35 92.78 BUN/Creatinine Ratio 18.7 20.8 H (10-20) Glucose 108 H 138 H (70-99(Fasting)) mg/dl Calcium 9.2 9.4 (8.6-10.3) mg/dl Magnesium 1.8 (1.7-2.4) mg/dl Total Bilirubin 2.4 H 2.8 H D (0.2-1.0) mg/dl Direct Bilirubin 0.6 H 0.6 H (0-0.2) mg/dl AST 15 15 (13-39) U/L ALT 20 21 (7-52) U/L Alkaline Phosphatase 47 47 (34-104) U/L Total Protein 6.3 7.1 (6.0-8.3) gm/dl Albumin 3.6 4.2 (3.4-5.0) gm/dl Lipase 3 L (11-82) U/L Hepatitis C Ab Screen Negative (Negative) Diagnostic Findings EXAMINATION: CT of the abdomen and pelvis performed after the administration of IV contrast TECHNIQUE: Helical CT images from the lung bases through the symphysis pubis were obtained with contrast. Coronal and sagittal reformatted images were generated at a workstation for further assessment. Dose reduction techniques were achieved by using automatic exposure control and/or adjustment of mA and/or kV according to patient size and/or use of iterative reconstruction technique. COMPARISON: 07/12/2025 HISTORY: Abdominal pain FINDINGS: Lower chest: No consolidation. No pleural effusion or pneumothorax. Liver: No suspicious liver lesions. Portal veins appear patent. Gallbladder: The gallbladder is distended and filled with stones. Mild free fluid is seen between the gallbladder and liver (note this was not definitely seen on ultrasound). Inflammatory fat stranding surrounds the gallbladder. Spleen: Enlarged measuring 13.9 cm Pancreas: No suspicious pancreatic lesions. The pancreatic duct is not dilated. Adrenal glands: No adrenal nodules. Kidneys: No hydronephrosis or obstructing renal stones. Bladder / Pelvic organs: Unremarkable. Bowel: No bowel obstruction. No abnormal bowel wall thickening. The appendix is unremarkable. Lymph nodes: No retroperitoneal, mesenteric, or pelvic lymphadenopathy. Peritoneum / Retroperitoneum: Mild free fluid in the pelvis. Vessels: No infrarenal aortic aneurysm. Moderate to heavy aortoiliac calcification. Bones and soft tissues: No suspicious lesion in the bones. IMPRESSION: Findings on CT, in conjunction with ultrasound, are consistent with acute cholecystitis. Electronically signed by Yassine Rosales 07-14-2025 6:58 PM EXAMINATION: US abdomen right upper quadrant COMPARISON: None HISTORY: Abdominal pain TECHNIQUE: The right upper quadrant of the abdomen was scanned in standard fashion with specialized ultrasound transducers using both sosa scale and limited color Doppler techniques. Findings: Liver: The liver demonstrates normal homogeneous echotexture. No evidence of a focal hepatic mass or intrahepatic biliary ductal dilatation. The main portal vein is patent with antegrade flow. The liver is enlarged measuring 18.5 cm. Gallbladder: Numerous calcified stones and sludge are noted in the gallbladder. Increased gallbladder distention measuring 4.2 cm transverse. Gallbladder wall does not appear significantly thickened, measuring up to 3 mm. Sonographic Salgado sign performed by the technologist is negative. The patient has reportedly been given pain medication. Bile Ducts: Both the intra- and extrahepatic biliary system are of normal caliber. The common bile duct measures mm in diameter. Pancreas: Not visualized due to shadowing bowel gas Right kidney: Normal echotexture, without mass or hydronephrosis. Right kidney craniocaudal dimension: Fluid: No evidence of ascites or pleural effusions. Impression: 1. Findings on ultrasound, in conjunction with CT are consistent with acute cholecystitis. NUCLEAR MEDICINE HEPATOBILIARY SCAN CLINICAL HISTORY: Abdominal pain. Cholelithiasis. Evaluate for acute cholecystitis. COMPARISON: None TECHNIQUE: 5.5 mCi of technetium 99m Choletec IV was injected at 9:50 AM on July 15, 2025. Immediately following injection, imaging of the abdomen was carried out for 60 minutes in the anterior projection. Radiotracer within the gallbladder was not identified at 60 minutes. Therefore, 2 mg of morphine was administered IV as per protocol and imaging was carried out for an additional 30 minutes. FINDINGS: Hepatic uptake of radiotracer is prompt and homogeneous. Radiotracer activity is identified within the common bile duct at 10 minutes and small bowel at 15 minutes. Radiotracer was not identified within the gallbladder at 60 minutes and therefore morphine was administered as per protocol. Radiotracer was not identified within the gallbladder following 30 minutes of additional imaging. IMPRESSION: Nonvisualization of radiotracer within the gallbladder following morphine administration. The findings indicate cystic duct obstruction and acute cholecystitis.
[2025-07-15] MEDS: MoRPHine SULFATE 2 MG/ML CARP ONE (11:23)
--- NOTE | 2025-07-15 11:51 | Hospitalist Progress Note ---
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 His evaluation is significant for leukocytosis 16.13 with bilirubin of 2.9 and direct bilirubin 0.6, otherwise LFTs normal. Lipase is 3. CTAP and GBUS both consistent with acute cholecystitis. Admission for management of acute cholecystitis with IV antibiotics, failure outpatient treatment. 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 Returning for worsening abdominal pain with N/V. CTAP & GB US: acute choley HIDA scan: cystic duct obstruction + acute choley unable to obtain MRCP due to MRI being down. CBC w/ rising leukocytosis of 18.09, no anemia. BMP w/ stable renal function/electrolytes LFTs w/ downtrending from 2.8 to 2.4 w/ a DB of 0.6. Remainder of LFTs WNL. --> does appear pt has hx of hyperbilirubinemia w/ levels ranging from 1.1-1.3 typically. This suggests possible underlying [place] syndrome. Gen surg consulted --> recommending IV abx & trending labs. Possible surgery in AM; concern for need for ERCP given hyperbilirubinemia. Clear liquid diet, NPO after midnight. Continue IV Flagyl + IV Cefepime. Pain regimen: Tylenol, Dilaudid 0.5-1mg. Zofran prn for N/V. #HTN Slightly hypertensive, 148/76 Continue Carvedilol; can hold Losartan until diet resumed. #Radiculopathy- Gabapentin HS #HLD- Rosuvastatin - continue once diet ordered Dispo: Admit, med/sx VTE Prophylaxis: SCDs - hold chemical in the setting of upcoming surgery. Admission and Anticipated Discharge Date Admission Date: July 14, 2025 Supervising Physician Co-Signing Physician Notes The patient was not seen by me. The chart was reviewed. Case discussed with DIAMANTE Álvarez. Agree with assessment and plan Subjective Vinny was seen & examined this afternoon. He states that his abdominal pain is managed on narcotics but does feel they wear off quickly. He admits to feeling nauseous but denied vomiting. States he has not passed gas or had a BM today. Denies CP or SOB. Physical Exam Physical Exam: General: NAD, VS: BP 148/76; P75; R18; T36.7C Resp: normal respiratory effort, lungs clear to auscultation CV: RRR, no murmur Abd: normal bowel sounds, RUQ tenderness to palpation. Extremities: Moves all extremities, no edema Neuro: A&O x3 Skin: intact, no lesions noted Results & Data Results & Data Vital Signs (Past 12 Hours) Vital Signs Temp Pulse Resp BP Pulse Ox O2 Del Method 07/15/25 07:20 Room Air 07/15/25 07:19 36.5 C 70 18 143/73 H 90 Room Air PG Care Time/CCT Total # of Minutes Spent Total Time Spent with Patient: Total time spent is greater than 50% in coordination of care (as documented) at patient's floor/unit and/or counseling patient: Coding Level of Care Code 17213 SUB INP/OBS CARE 2/35MIN Diagnoses Cholecystitis, acute K81.0
--- NOTE | 2025-07-15 12:32 | Nuclear Medicine Report ---
NUCLEAR MEDICINE HEPATOBILIARY SCAN CLINICAL HISTORY: Abdominal pain. Cholelithiasis. Evaluate for acute cholecystitis. COMPARISON: None TECHNIQUE: 5.5 mCi of technetium 99m Choletec IV was injected at 9:50 AM on July 15, 2025. Imme diately following injection, imaging of the abdomen was carried out for 60 minutes in the anterior pr ojection. Radiotracer within the gallbladder was not identified at 60 minutes. Therefore, 2 mg of mor phine was administered IV as per protocol and imaging was carried out for an additional 30 minutes. FINDINGS: Hepatic uptake of radiotracer is prompt and homogeneous. Radiotracer activity is identifie d within the common bile duct at 10 minutes and small bowel at 15 minutes. Radiotracer was not identi fied within the gallbladder at 60 minutes and therefore morphine was administered as per protocol. Ra diotracer was not identified within the gallbladder following 30 minutes of additional imaging. IMPRESSION: Nonvisualization of radiotracer within the gallbladder following morphine administration . The findings indicate cystic duct obstruction and acute cholecystitis. ACT 112: Negative or not required by law. Electronically signed by: Vinny Mcgee M.D. 07/15/2025 12:30 PM
[2025-07-15] MEDS: ONDANSETRON INJ 2 MG/ML 2 ML VIAL IV PRN (13:00)
[2025-07-15] MEDS: GABAPENTIN 100 MG CAP PO SCH (20:27)
[2025-07-16] MEDS: ACETAMINOPHEN 500 MG TAB PO PRN (00:01)
[2025-07-16] MEDS: HYDROmorphone INJ 1 MG/ML SYRINGE IV PRN (01:04)
[2025-07-16 06:44] LABS: Hematocrit (blood only) 40.9 % (42.0-52.0); Hemoglobin 14.4 g/dL (14.0-18.0); Immature Granulocytes # (auto) 0.04 K/uL (0.01-0.20); Immature Granulocytes % (auto) 0.3 %; Mean Corpuscular Hemoglobin 32.5 pg (25.0-34.0); Mean Corpuscular Volume 92.3 fL (80.0-100.0); Platelet Count 135 K/uL (130-400); RDW Standard Deviation 45.1 fL (36.4-46.3); Red Blood Count 4.43 M/uL (4.70-6.10); White Blood Count 13.02 K/ul (4.8-10.8)
[2025-07-16 07:15] LABS: Alanine Aminotransferase 16.0 U/L (7-52); Albumin Globulin Ratio 1.3 (0.9-2); Albumin Level 3.5 gm/dl (3.4-5.0); Alkaline Phosphatase 45.0 U/L (34-104); Anion Gap 3.0 (3-11); Bilirubin,Total 1.9 mg/dl (0.2-1.0); Blood Urea Nitrogen 22.0 mg/dl (6-23); Calcium 9.2 mg/dl (8.6-10.3); Carbon Dioxide 33.0 mmol/L (21-32); Chloride 100.0 mmol/L (98-107); Creatinine Clr Calc Pharmacy 89.6 ml/min; Globulin 2.8 gm/dl (2.5-4.0); Glucose 111.0 mg/dl (70-99(Fasting)); Potassium 4.6 mmol/L (3.5-5.1); Sodium 136.0 mmol/L (136-145); Total Protein 6.3 gm/dl (6.0-8.3)
--- NOTE | 2025-07-16 09:28 | Surgery Progress Note ---
Date of Service July 16, 2025 Assessment & Plan (1) Cholecystitis, acute: Plan: Pt here with acute cholecystitis LFTs were uptrending, MRCP recommended but machine was down yesterday CT scan, RUQ US, and HIDA all + for acute taina WBC 13 (18), LFTs are coming down today Tb 1.9 (2.4), Db 0.5 (0.6), AST 12, ALT 45. vitals stable On exam abdomen soft but ttp in the RUQ Will discuss with surgeon plans for lap taina today Admission and Anticipated Discharge Date Admission Date: July 14, 2025 Supervising Physician Co-Signing Physician Notes Patient seen and examined, labs and imaging reviewed, agree with above. Patient admitted on Saturday with acute cholecystitis. Still with some discomfort in t he right upper quadrant, mildly tender to palpation. Afebrile with stable vitals. WBC 13, downtrending. LFTs normalizing. CT, ultrasound, and HIDA scan personally reviewed and interpreted and agree with the assessment of cholelithiasis with acute cholecystitis. Cholelithiasis with acute cholecystitis plan for laparoscopic cholecystectomy risks discussed to include but not limited to bleeding, infection, retained stone, bile leak, open surgery, damage to surrounding structures including bile duct, need for future or more extensive surgery, failure to treat symptoms, and risks of anesthesia. Subjective Patient reports + RUQ pain. Still present, managed with prn pain meds. Taking anti-emetics as well. Physical Exam Physical Exam: awake/alert, no distress Respiratory: normal respiratory effort Gastrointestinal (Abdomen): Inspection/Auscultation: abdomen not distended Percussion/Palpation: + abdomen tender (ttp RUQ) and abdomen soft Results & Data Vital Signs (Past 12 Hours) Vital Signs Temp Pulse Resp BP Pulse Ox O2 Del Method 07/16/25 07:24 98.2 F 67 17 161/82 H 90 Room Air 07/15/25 22:48 99.5 F 68 18 141/84 H 92 Room Air PG Care Time/CCT Total # of Minutes Spent Total Time Spent with Patient: Total time spent is greater than 50% in coordination of care (as documented) at patient's floor/unit and/or counseling patient: Coding Level of Care Code 44254 SUB INP/OBS CARE 25MIN Diagnoses Cholecystitis, acute K81.0
[2025-07-16] MEDS: SODIUM CHLORIDE 0.9% 1,000 ML IV SCH (10:45)
--- NOTE | 2025-07-16 11:09 | Anesthesiology Consultation ---
Date of Service July 16, 2025 Assessment & Plan Chart Review Chart Review: Acceptable Risk for Surgery and Patient NOT seen in Pre Admission Testing Consults Requested none ASA ASA4 Proposed Anesthesia Anesthesia Type: General History Surgery Operation Date: 07/16/25 10:15 Proposed Procedures p Laparoscopic Cholecystectomy - Claudio Holt DO, FACS Height/Weight Height: 6 ft 4 in Weight: 104.2 kg Allergies Allergy/AdvReac Type Severity Reaction Status Date / Time pravastatin AdvReac Intermediate Muscle Pain Verified 07/14/25 19:33 simvastatin AdvReac Intermediate Muscle Pain Verified 07/14/25 19:33 Medications Home Medications Medication Instructions Recorded Confirmed Last Taken cyanocobalamin (vitamin B-12) 1,000 mcg PO QAM 12/08/18 07/14/25 01/10/21 1,000 mcg tablet (Vitamin B-12) [id number] 5 mg-zeaxanth 1 cap PO DAILY 07/17/24 07/14/25 Unknown 1 mg-bilberry 7.5 mg-herbal capsule ([employer] Formula) cholecalciferol (vitamin D3) 50 50 mcg PO DAILY 07/24/24 07/14/25 Unknown mcg (2,000 unit) capsule losartan 100 mg tablet 100 mg PO QAM #90 tabs 09/30/24 07/14/25 07/14/25 doxycycline hyclate 100 mg capsule 100 mg PO BID PRN tick bites 02/04/25 07/14/25 Unknown gabapentin 100 mg capsule 100 mg PO HS #30 caps 05/21/25 07/14/25 07/13/25 carvedilol 6.25 mg tablet 6.25 mg PO BID #60 tabs 06/03/25 07/14/25 07/14/25 08:00 amoxicillin 875 mg-potassium 1 tab PO BID #14 tabs 07/13/25 07/14/25 07/14/25 08:00 clavulanate 125 mg tablet metoclopramide HCl 5 mg tablet 5 mg PO DAILY PRN nausea and 07/13/25 07/14/25 Unknown vomiting #20 tabs oxycodone 5 mg tablet 5 mg PO Q6H PRN pain #10 tabs 07/13/25 07/14/25 Unknown rosuvastatin 20 mg tablet 20 mg PO HS 07/14/25 07/14/25 07/13/25 Active Medications Generic Name Dose Route Start Last Admin Trade Name Freq PRN Reason Stop Dose Admin Acetaminophen 1,000 mg 07/14/25 20:41 07/16/25 00:01 Acetaminophen 500 Mg Tab PO 08/13/25 20:40 1,000 mg Q8H PRN Administration Pain & Pre PT Carvedilol 6.25 mg 07/15/25 17:15 07/16/25 07:48 Carvedilol 6.25 Mg Tab PO 08/14/25 17:14 6.25 mg BIDM CHAR Administration Gabapentin 100 mg 07/15/25 21:00 07/15/25 20:27 Gabapentin 100 Mg Cap PO 08/14/25 20:59 Not Given HS CHAR Hydromorphone HCl 0.5 mg 07/15/25 13:25 07/15/25 19:58 Hydromorphone Inj 0.5 Mg/0.5 Ml Syr IV 07/28/25 20:40 0.5 mg Q3H PRN Administration Pain (1,2,3,4,5) & Pre PT Hydromorphone HCl 1 mg 07/15/25 13:28 07/16/25 10:45 Hydromorphone Inj 1 Mg/Ml Syringe IV 07/29/25 13:27 1 mg Q3H PRN Administration Pain (6,7,8,9,10) Acetaminophen 1,000 mg in 100 mls @ 400 mls/hr 07/14/25 20:41 07/14/25 21:40 Ofirmev IV 07/17/25 20:40 Infused Q8H PRN Infusion Fever/pain Metronidazole 500 mg in 100 mls @ 100 mls/hr 07/15/25 09:00 07/16/25 09:00 Flagyl IV 07/25/25 08:59 Infused Q12H CHAR Infusion Protocol Cefepime HCl 2,000 mg in 20 mls @ 5 mls/min 07/15/25 08:00 07/16/25 08:00 Maxipime 2000mg IV 07/25/25 07:59 5 mls/min Q12H CHAR Administration Protocol Sodium Chloride 1,000 mls @ 80 mls/hr 07/16/25 10:45 07/16/25 10:45 Nss IV 07/19/25 10:44 80 mls/hr .[id number] CHAR Administration Ondansetron HCl 4 mg 07/14/25 22:25 07/16/25 07:48 Ondansetron Inj 2 Mg/Ml 2 Ml Vial IV 08/13/25 22:24 4 mg Q6H PRN Administration Nausea Past Medical History Medical History Encounter for pre-operative examination Sciatica Hypertension Thyroid disease History of gout Osteoarthritis History of migraine History of cardioversion Atrial fibrillation DX >20 YEARS AGO - EPISODE X 1 2/2 THYROID STORM - S/P CARDIOVERSION - NO ISSUES SINCE - DOES NOT FOLLOW W/ CARDIO History of thyroid storm >20 YEARS AGO - DENIES CURRENT ISSUES Hyperlipidemia Hypertension Exercise / Class Metabolic Activity III < 4 Walking/Shop/Light housework Past Family History Family History Brother Family history of diabetes mellitus Mother Family history of diabetes mellitus Brother Family history of esophageal cancer Myocardial infarction Family/Other No problems noted. Father Myocardial infarction Other Cancer No family history of adverse response to anesthesia Denies family history of Ovarian cancer Prostate cancer Breast cancer Colorectal cancer Stroke Past Surgical History Surgical History History of left inguinal hernia repair History of colonoscopy with polypectomy History of umbilical hernia repair History of wisdom tooth extraction History of hand surgery LEFT Status post arthroscopic surgery of right knee History of detached retina repair History of cataract surgery History of repair of rotator cuff LEFT Past Anesthesia History No Hx of Anesthesia Complications and No Family Hx of Anesthesia Complications History of PONV No Hx of PONV and No Hx of Motion Sickness Social History Smoking Status: Never smoker Do You Dip or Chew Tobacco: No Hx Alcohol Use: No Hx Substance Use: No substance use type: does not use Physical Exam Vital Signs Last Vital Signs Temp 36.8 C 07/16/25 07:24 Pulse 67 07/16/25 07:24 Resp 17 07/16/25 07:24 BP 161/82 H 07/16/25 07:24 Pulse Ox 90 07/16/25 07:24 O2 Del Method Room Air 07/16/25 07:24 O2 Flow Rate 1 07/14/25 22:52 Testing Laboratory Results 07/16/25 04:44 07/16/25 04:44 PT 11.9 Seconds (9.0-12.0) 07/14/25 17:20 INR 1.1 (0.9-1.1) 07/14/25 17:20 APTT 28 Seconds (21-31) 07/14/25 17:20 Electrocardiogram Date: 03/22/25 Findings: + NSR @ (SR @ 66 w/ PVC's;LAD;? infer. infarct) Chest X-Ray Date: 03/22/25 Findings: + NAD Echocardiogram Date: 11/05/24 EF: 65% LV Function: normal RWMA: + none Other Findings: + LVH (mild) and + diastolic dysfunction (Grade 1) Valvular Disease: + AI (mild) TR-mild mildly
--- NOTE | 2025-07-16 11:26 | Hospitalist Progress Note ---
Date of Service July 16, 2025 Assessment & Plan (1) Cholecystitis, acute: Plan 74-year-old male PMHx HTN, GERD, HLD, lumbar radiculopathy, vitamin B12 deficiency, mild ascending aortic dilatation, and recent diagnosis of possible diverticulitis presenting for worsening abdominal pain starting 2 days GRINDER NEEDLE TIP. His evaluation is significant for leukocytosis 16.13 with bilirubin of 2.9 and direct bilirubin 0.6, otherwise LFTs normal. Lipase is 3. CTAP and GBUS both consistent with acute cholecystitis. Admission for management of acute cholecystitis with IV antibiotics, failure outpatient treatment. #Acute cholecystitis Worsening abdominal pain starting 2 days GRINDER NEEDLE TIP, thought to be an early diverticulitis and sent home with pain management and antibiotics. Returning for worsening abdominal pain with N/V. CTAP & GB US: acute choley HIDA scan: cystic duct obstruction + acute choley unable to obtain MRCP due to MRI being down. CBC w/ downtrending leukocytosis of 13.02, no anemia. BMP w/ stable renal function/electrolytes LFTs w/ downtrending TB from 2.4 to 1.9 w/ a DB of 0.6. Remainder of LFTs WNL. --> does appear pt has hx of hyperbilirubinemia w/ levels ranging from 1.1-1.3 typically. This suggests possible underlying [place] syndrome. Gen surg consulted --> to go to OR today, 07/16 for lap choley. Continue IV Flagyl + IV Cefepime. Pain regimen: Tylenol, Dilaudid 0.5-1mg. Zofran prn for N/V. #HTN Slightly hypertensive, 148/76 Continue Carvedilol; can hold Losartan until diet resumed. #Radiculopathy- Gabapentin HS #HLD- Rosuvastatin - continue once diet ordered Dispo: Admit, med/sx VTE Prophylaxis: SCDs - hold chemical in the setting of upcoming surgery. Updated at bedside 07/16. Admission and Anticipated Discharge Date Admission Date: July 14, 2025 Supervising Physician Co-Signing Physician Notes The patient was not seen by me. The chart was reviewed. Case discussed with DIAMANTE Álvarez. Agree with assessment and plan Subjective Vinny was seen & examined this morning with his . He states his abdominal pain was a 5/10 at time of my encounter. States he had a decent night secondary to his pain being managed with the pain medication. denies any emesis. Physical Exam Physical Exam: General: NAD, VS: BP 136/78; P69; R20; T37C Resp: normal respiratory effort Abd: + tenderness to RUQ, soft, normoactive BS. Extremities: Moves all extremities, no edema Neuro: A&O x3 Skin: intact, no lesions noted Results & Data Results & Data Vital Signs (Past 12 Hours) Vital Signs Temp Pulse Resp BP Pulse Ox O2 Del Method 07/16/25 07:24 36.8 C 67 17 161/82 H 90 Room Air 07/16/25 07:15 Room Air PG Care Time/CCT Total # of Minutes Spent Total Time Spent with Patient: Total time spent is greater than 50% in coordination of care (as documented) at patient's floor/unit and/or counseling patient: Coding Level of Care Code 66351 SUB INP/OBS CARE 2/35MIN Diagnoses Cholecystitis, acute K81.0
--- NOTE | 2025-07-16 11:47 | Communication Note ---
Date of Service: July 16, 2025 on 05/17/2025-Abnl stress echo w/ ischemia @ 84% MPHR,suggesting possible anterolateral ischemia w/ frequent PVC's
[2025-07-16] MEDS ORDERED: HYDROmorphone INJ 1 MG/ML SYRINGE IV PRN (11:53)
[2025-07-16] MEDS ORDERED: NALOXONE HCL 0.4 MG/1 ML VIAL/CARP IV PRN (11:53)
[2025-07-16] MEDS ORDERED: ATROPINE SULFATE 0.1 MG/ML 10ML SYR IV PRN (11:53)
[2025-07-16] MEDS ORDERED: PROMETHAZINE HCL 6.25 MG in SODIUM CHLORIDE 0.9% 50 ML IV PRN (11:53)
[2025-07-16] MEDS ORDERED: ONDANSETRON INJ 2 MG/ML 2 ML VIAL IV PRN (11:53)
[2025-07-16] MEDS ORDERED: FLUMAZENIL 0.1 MG/1 ML 10 ML VIAL IV PRN (11:53)
[2025-07-16] MEDS ORDERED: ROCURONIUM BROMIDE 10 MG/ML 5 ML VIAL IV ONE ×2 (12:00→12:10)
[2025-07-16] MEDS ORDERED: LIDOCAINE 2% 2 ML VIAL/AMP(20MG/ML) INFIL ONE (12:00)
[2025-07-16] MEDS ORDERED: ONDANSETRON INJ 2 MG/ML 2 ML VIAL ONE (12:00)
[2025-07-16] MEDS ORDERED: PROPOFOL IV EMULSION 10 MG/ML 20 ML VIAL IV ONE (12:00)
[2025-07-16] MEDS ORDERED: DEXAMETHASONE SOD INJ 4 MG/ML VIAL ONE (12:00)
[2025-07-16] MEDS ORDERED: MIDAZOLAM HCL 1 MG/ML 2ML VIAL ONE (12:01)
[2025-07-16] MEDS ORDERED: PHENYLEPHRINE HCL 10 MG/ML VIAL ONE (12:11)
[2025-07-16] MEDS: BUPIVACAINE 0.5 % 5 MG/1 ML MPF 30ML VIAL ONE (12:55)
[2025-07-16] MEDS ORDERED: SUGAMMADEX SODIUM 200 MG/2 ML VIAL IV ONE (13:56)
[2025-07-16] MEDS ORDERED: KETOROLAC 30 MG/ML VIAL ONE (13:56)
--- NOTE | 2025-07-16 14:29 | Operative Report ---
PG Post Operative Report Pre & Post Diagnosis Operation Date: 07/16/25 10:15 Pre-Op Diagnosis: acute cholecystitis Post-Op Diagnosis: acute gangrenous cholecystitis I identified the patient and participated in the time-out.: Yes Procedure Operation Date: 07/16/25 10:15 Actual Procedures p Laparoscopic Cholecystectomy(Not Applicable) - Claudio Holt DO, FACS Surgeon Claudio Holt DO, FACS C[employer]ing And Events Manager Yanna Roman Estimated Blood Loss 25 Findings Consistent with Post-Op Diagnosis Acute gangrenous cholecystitis. Critical view of safety obtained, cystic artery doubly clipped and divided. Cystic duct was dilated, stapled with 30 mm travis loaded Endo ENEIDA stapler. Good hemostasis, 10 mm CHINA drain placed. During removal of the gallbladder, the gallbladder and bag ruptured and there was sp illage of stones to retrieved. Specimens Gallbladder Anesthesia Type General Complications none Disposition Accompanied Patient To Recovery: No Disposition: Recovery Room Indications 74-year-old male admitted on Saturday with acute cholecystitis confirmed by HIDA scan yesterday. Plan for laparoscopic cholecystectomy. The risks of the procedure were discussed, all questions were answered, and the patient agreed to proceed with surgery as planned. Description of Procedure The patient was properly identified, consented, and taken to the operating room where he was placed in the supine position. General endotracheal anesthesia was induced. SCDs and a safety belt were placed. Preoperative antibiotics were administered. The patient's abdomen was prepped and draped in the standard sterile fashion. A surgical timeout was performed and all parties were in agreement that this was the correct patient and procedure to be performed and we continued as planned. An incision was made superior and to the left of the umbilicus overlying the rectus muscle and the Veress needle was inserted. Saline drop test confirmed entry into the peritoneum. The abdomen was insufflated with carbon dioxide which the patient tolerated without incident. The abdomen was then entered using the Optiview technique and a 5 mm trocar. The laparoscope was inserted and no damage from initial trocar or Veress needle placement was noted, no gross abnormalities were noted within the 4 quadrants of the abdomen. An 11 mm port was placed in the subxiphoid position and two 5 mm ports were then placed in the right subcostal position. The patient was placed in reverse Trendelenburg position and rotated towards the left. The gallbladder significantly inflamed and showed evidence of gangrene. Dense omental adhesions were taken down with blunt dissection. The gallbladder was aspirated to aid in retraction. It appeared to have hydrops. The dome of the gallbladder was retracted towards the left upper quadrant and the infundibulum was retracted toward the right lower quadrant revealing Calot's triangle. Peritoneal attachments were taken down with electrocautery and blunt dissection. The cystic duct and artery were circumferentially dissected. A window of safety was obtained showing the cystic duct entering the gallbladder with no aberrant structures noted. The cystic artery was doubly clipped and divided. The cystic duct was quite dilated and would not accommodate the clips. The 11 mm port was upgraded to a 12 mm port. The cystic duct was then divided using a 30 mm travis loaded Endo ENEIDA stapler. The gallbladder was then lifted off the gallbladder fossa with electrocautery. A 10 mm flat CH[place] drain was placed in the abdomen and exited through the right lateral port site. It was placed into the gallbladder fossa. The gallbladder was placed in an Endo Catch bag and removed through the subxiphoid port site. There were many small stones, and during removal the gallbladder tore and some of the stones were spilled within the abdomen. I was able to retrieve all the stones were visualized. The right upper quadrant was irrigated and hemostasis was found to be good. 5 mm trochars were removed under direct visualization and the abdomen was allowed to collapse. The subs port site fascia was closed with 0 Vicryl suture. The wound was irrigated, and the skin of all ports was closed with 4-0 Monocryl subcuticular sutures. The drain was secured in place with a 2-0 nylon suture. Dermabond was placed over the wo unds. A drain dressing was placed. The patient was extubated in the operating room and taken to the PACU where he recovered without apparent incident. All sponge, instrument and needle counts were correct at the conclusion of the procedure. The patient tolerated the procedure well. The physician's parts room assistant was present and scrubbed for the entirety of the case and was essential in positioning the patient, prepping and draping, retraction and exposure, driving the laparoscope, removal of the gallbladder, closure the incisions, and placement of the dressings. I attest to the content of the Intraoperative Record and any orders documented therein. Any exceptions are noted below.
--- NOTE | 2025-07-16 15:11 | Anesthesiology Progress Note ---
Date of Service July 16, 2025 Anesthesia Post Procedure Vital Signs Vital Signs: Temp Pulse Pulse Resp BP BP Pulse Ox 07/16/25 15:05 79 18 129/80 93 07/16/25 14:55 82 18 134/74 92 07/16/25 14:45 71 16 125/77 95 07/16/25 14:39 36 C L 78 16 147/70 H 93 07/16/25 11:27 37 C 69 20 136/78 92 07/16/25 07:24 36.8 C 67 17 161/82 H 90 07/16/25 07:15 07/15/25 22:48 37.5 C 68 18 141/84 H 92 07/15/25 16:26 36.7 C 75 18 148/76 H 91 O2 Del Method O2 Flow Rate 07/16/25 15:05 Nasal Cannula 3 07/16/25 14:55 Nasal Cannula 3 07/16/25 14:45 Oxymask 8 07/16/25 14:39 Oxymask 8 07/16/25 11:27 Room Air 07/16/25 07:24 Room Air 07/16/25 07:15 Room Air 07/15/25 22:48 Room Air 07/15/25 16:26 Room Air Pain Intensity Right Abdomen: Pain Intensity: 4 Transfer of Care Handoff Completed per policy Notes Mental Status: alert / awake / arousable Patient Amnestic to Procedure: Yes Nausea / Vomiting: adequately controlled Pain: adequately controlled Airway Patency, RR, SpO2: stable & adequate BP & HR: stable & adequate Hydration State: stable & adequate Anesthetic Complications: no major complications apparent
[2025-07-16] MEDS: FAMOTIDINE/PF 20 MG/2 ML VIAL IV ONE (15:23)
[2025-07-17 06:34] LABS: Hematocrit (blood only) 38.8 % (42.0-52.0); Hemoglobin 13.6 g/dL (14.0-18.0); Mean Corpuscular Hemoglobin 32.2 pg (25.0-34.0); Mean Corpuscular Volume 91.7 fL (80.0-100.0); Platelet Count 152 K/uL (130-400); RDW Standard Deviation 44.3 fL (36.4-46.3); Red Blood Count 4.23 M/uL (4.70-6.10); White Blood Count 12.47 K/ul (4.8-10.8)
[2025-07-17 06:54] LABS: Immature Granulocytes # (auto) 0.05 K/uL (0.01-0.20); Immature Granulocytes % (auto) 0.4 %; RBC Morphology Unremarkable
[2025-07-17 07:15] LABS: Alanine Aminotransferase 40.0 U/L (7-52); Albumin Globulin Ratio 1.2 (0.9-2); Albumin Level 3.2 gm/dl (3.4-5.0); Alkaline Phosphatase 57.0 U/L (34-104); Anion Gap 7.0 (3-11); Bilirubin,Total 0.9 mg/dl (0.2-1.0); Blood Urea Nitrogen 26.0 mg/dl (6-23); Calcium 8.5 mg/dl (8.6-10.3); Carbon Dioxide 27.0 mmol/L (21-32); Chloride 103.0 mmol/L (98-107); Creatinine Clr Calc Pharmacy 98.0 ml/min; Globulin 2.7 gm/dl (2.5-4.0); Glucose 150.0 mg/dl (70-99(Fasting)); Potassium 4.2 mmol/L (3.5-5.1); Sodium 137.0 mmol/L (136-145); Total Protein 5.9 gm/dl (6.0-8.3)
--- NOTE | 2025-07-17 12:06 | Surgery Progress Note ---
Date of Service July 17, 2025 Assessment & Plan (1) Cholecystitis, acute: (2) S/P laparoscopic cholecystectomy: Plan: POD #1 s/p Laparoscopic Cholecystectomy - gangrenous WBC continues downward trend and is 12.47 today. LFTs within normal limits. Segun is doing very well this morning- he reports that the pain that brought him into the hospital has resolved. He is tolerating a clear liquid diet and would like to advance his diet. I have advanced him to full liquids and will advance him as tolerated if he does well with lunch. Continue CHINA drain, IV abx. Ambulation was encouraged as well as incentive spirometry. Possible discharge to home tomorrow or Saturday if he continues to do well. Patient seen and examined with Dr. Holt. Admission and Anticipated Discharge Date Admission Date: July 14, 2025 Supervising Physician Co-Signing Physician Notes Patient seen and examined, labs reviewed, agree with above. POD #1 laparoscopic cholecystectomy for gangrenous cholecystitis. Overall doing well, feels much better than prior to surgery. On exam he is afebrile with stable vitals, abdom en is soft, appropriately tender to palpation, incisions without infection, CHINA drain serosanguineous. WBC 12, downtrending, LFTs normal. Will advance diet, potential discharge tomorrow, will DC CHINA drain early next week in the clinic. He will need 1 week outpatient antibiotics. Subjective Vinny is resting in bed, reports that he is feeling much better! He states that the pain that brought him into the hospital was immediately gone when he woke up from surgery. He is tolerating a clear liquid diet, would like to advance his diet. He reports that his pain is well-controlled. Review of Systems Constitutional: as per Subjective / HPI; no fever and no chills Gastrointestinal: + abdominal pain (expected at incision s ites. ); no nausea and no vomiting Physical Exam Constitutional: WD/WN, vitals as above Gastrointestinal (Abdomen): abdominal incisions are all CDI with surgical glue in place- no signs of infec tion. CHINA drain in place with serosang output (85 cc since placement). Results & Data Vital Signs (Past 12 Hours) Vital Signs Temp Pulse Resp BP BP Pulse Ox O2 Del Method 07/17/25 11:43 36.5 C 60 16 163/83 H 93 Room Air 07/17/25 07:19 36.6 C 71 18 146/82 H 93 Room Air 07/17/25 03:21 36.9 C 72 16 144/79 H 92 Room Air PG Care Time/CCT Total # of Minutes Spent Total Time Spent with Patient: Total time spent is greater than 50% in coordination of care (as documented) at patient's floor/unit and/or counseling patient: Coding Level of Care Code 50001 Post Operative Follow-Up Diagnoses Cholecystitis, acute K81.0 S/P laparoscopic cholecystectomy Z90.49
--- NOTE | 2025-07-17 13:08 | Hospitalist Progress Note ---
Date of Service July 17, 2025 Assessment & Plan (1) Cholecystitis, acute: Plan 74-year-old male PMHx HTN, GERD, HLD, lumbar radiculopathy, vitamin B12 deficiency, mild ascending aortic dilatation, and recent diagnosis of possible diverticulitis presenting for worsening abdominal pain starting 2 days BEE ROBBER. His evaluation is significant for leukocytosis 16.13 with bilirubin of 2.9 and direct bilirubin 0.6, otherwise LFTs normal. Lipase is 3. CTAP and GBUS both consistent with acute cholecystitis. Admission for management of acute cholecystitis with IV antibiotics, failure outpatient treatment. #Acute cholecystitis Worsening abdominal pain starting 2 days BEE ROBBER, thought to be an early diverticulitis and sent home with pain management and antibiotics. Returning for worsening abdominal pain with N/V. CTAP & GB US: acute choley HIDA scan: cystic duct obstruction + acute choley unable to obtain MRCP due to MRI being down. CBC w/ downtrending leukocytosis of 13.02, no anemia. BMP w/ stable renal function/electrolytes LFTs w/ downtrending TB from 2.4 to 1.9 w/ a DB of 0.6. Remainder of LFTs WNL. --> does appear pt has hx of hyperbilirubinemia w/ levels ranging from 1.1-1.3 typically. This suggests possible underlying [place] syndrome. Gen surg consulted --> s/p lap choley 07/16 w/ Dr. Holt. Diet advance as tolerated. CHINA drain to be removed next week. will require 1 week of abx on outpatient basis. Continue IV Flagyl + IV Cefepime. Pain regimen: Tylenol, Oxycodone 5-10mg (Dilaudid dc now that able to tolerate diet) Zofran prn for N/V. #HTN Continue Carvedilol; Resume Losartan in AM of 07/18. #Radiculopathy- Gabapentin HS #HLD- Rosuvastatin Dispo: Admit, med/sx VTE Prophylaxis: SCDs Hopeful for dc tomorrow, 07/18. Admission and Anticipated Discharge Date Admission Date: July 14, 2025 Supervising Physician Co-Signing Physician Notes The patient was not seen by me. The chart was reviewed. Case discussed with DIAMANTE Álvarez. Agree with assessment and plan Subjective Vinny was seen & examined this morning. He states that he feels much better after getting his gallbladder removed yesterday. He reports post-op pain but reports his previous pain he was having prior to surgery has subsided. He also reports his nausea has resolved as well. Physical Exam Physical Exam: General: NAD, VS: BP 163/83; P60; R16; T36.5C Resp: normal respiratory effort Abd: non-distended. CH[place] drain in place Extremities: Moves all extremities, no edema Neuro: A&O x3 Skin: intact, no lesions noted Results & Data Results & Data Vital Signs (Past 12 Hours) Vital Signs Temp Pulse Resp BP BP Pulse Ox O2 Del Method 07/17/25 11:43 36.5 C 60 16 163/83 H 93 Room Air 07/17/25 07:19 36.6 C 71 18 146/82 H 93 Room Air 07/17/25 03:21 36.9 C 72 16 144/79 H 92 Room Air PG Care Time/CCT Total # of Minutes Spent Total Time Spent with Patient: Total time spent is greater than 50% in coordination of care (as documented) at patient's floor/unit and/or counseling patient: Coding Level of Care Code 12806 SUB INP/OBS CARE 2/35MIN Diagnoses Cholecystitis, acute K81.0
[2025-07-17] MEDS: ROSUVASTATIN CALCIUM 20 MG TAB PO SCH (20:18)
[2025-07-17 23:10] VITALS: PULSE 66; TEMP 97.7
[2025-07-18] MEDS: MELATONIN 3 MG TAB PO PRN (02:36)
[2025-07-18 05:59] LABS: Hematocrit (blood only) 38.9 % (42.0-52.0); Hemoglobin 14.0 g/dL (14.0-18.0); Immature Granulocytes # (auto) 0.06 K/uL (0.01-0.20); Immature Granulocytes % (auto) 0.5 %; Mean Corpuscular Hemoglobin 32.6 pg (25.0-34.0); Mean Corpuscular Volume 90.7 fL (80.0-100.0); Platelet Count 181 K/uL (130-400); RDW Standard Deviation 43.0 fL (36.4-46.3); Red Blood Count 4.29 M/uL (4.70-6.10); White Blood Count 11.01 K/ul (4.8-10.8)
[2025-07-18 06:22] LABS: Alanine Aminotransferase 46.0 U/L (7-52); Albumin Globulin Ratio 1.4 (0.9-2); Albumin Level 3.4 gm/dl (3.4-5.0); Alkaline Phosphatase 53.0 U/L (34-104); Anion Gap 5.0 (3-11); Bilirubin,Total 0.8 mg/dl (0.2-1.0); Blood Urea Nitrogen 25.0 mg/dl (6-23); Calcium 8.6 mg/dl (8.6-10.3); Carbon Dioxide 29.0 mmol/L (21-32); Chloride 105.0 mmol/L (98-107); Creatinine Clr Calc Pharmacy 98.0 ml/min; Globulin 2.5 gm/dl (2.5-4.0); Glucose 140.0 mg/dl (70-99(Fasting)); Potassium 4.3 mmol/L (3.5-5.1); Sodium 139.0 mmol/L (136-145); Total Protein 5.9 gm/dl (6.0-8.3)
[2025-07-18 08:10] VITALS: BP 165/97; RESP 18; O2SAT 94
[2025-07-18] MEDS: LOSARTAN POTASSIUM 50 MG TAB PO SCH (08:29)
--- NOTE | 2025-07-18 10:26 | Discharge Summary ---
Discharge Summary Date of Service July 18, 2025 Principal Dx & Hospital Course #1 = Principal Diagnosis (1) Cholecystitis, acute: Plan 74-year-old male PMHx HTN, GERD, HLD, lumbar radiculopathy, vitamin B12 deficiency, mild ascending aortic dilatation, and recent diagnosis of possible diverticulitis presenting for worsening abdominal pain starting 2 days [employer]. His evaluation is significant for leukocytosis 16.13 with bilirubin of 2.9 and direct bilirubin 0.6, otherwise LFTs normal. Lipase is 3. CTAP and GBUS both consistent with acute cholecystitis. Admission for management of acute cholecystitis with IV antibiotics, failure outpatient treatment. #Acute cholecystitis Worsening abdominal pain starting 2 days [employer], thought to be an early diverticulitis and sent home with pain management and antibiotics. Returned for worsening abdominal pain with N/V. CTAP & GB US: acute choley; HIDA scan: cystic duct obstruction + acute choley unable to obtain MRCP due to MRI being down. CBC w/ downtrending leukocytosis, no anemia. BMP w/ stable renal function/electrolytes LFTs w/ resolution of hyperbilirubinemia following surgery. Gen surg consulted --> s/p lap choley 07/16 w/ Dr. Holt. Diet advance as tolerated. [place] drain removed prior to dc. will require 1 week of abx on outpatient basis. (sent on Augmentin BID x 7 days) s/p IV Flagyl + IV Cefepime while inpatient #HTN- Continue Carvedilol, Losartan #Radiculopathy- Gabapentin HS #HLD- Rosuvastatin Discharged home 07/18, discussed w/ general surgery prior to dc. Admission HPI Per Admitting Provider 74-year-old male PMHx HTN, GERD, HLD, lumbar radiculopathy, vitamin B12 de ficiency, mild ascending aortic dilatation, and recent diagnosis of possible diverticulitis presenting for worsening abdominal pain starting 2 days [employer]. Patient reports 2 days [employer] he started to experience abdominal pain across his lower abdomen that was consistent throughout the day. He was seen in the ED for such and diagnosed with diverticulosis, possible early diverticulitis and sent home on oral antibiotics and pain management. He took 2 days of antibiotics. The day of arrival, in the morning he started to have pain more localized to the right side of his abdomen that was constant in nature, occasionally worsening in waves. At its worst, it is a 7 out of 10 on the pain scale and at present it is around a 6 out of 10 on the same pain scale. He has had nausea but no vomiting. No diarrhea or constipation. He has been taking his temperature throughout the day, no fevers reported. He denies chest pain, SOB, palpitations, vomiting/diarrhea/constipation, URI symptoms, LUTS, fever/chills, numbness/tingling, weakness, syncope, or falls. Recalls having similar pain approximately 5 years ago and was diagnosed with cholelithiasis that was nonobstructing in nature. Has not had something of this significance previously however. ED evaluation reveals CBC with leukocytosis 16.13, H&H stable; PT/INR; CMP sodium 135, ratio 20.8, glucose 138, bilirubin 2.9, direct bilirubin 0.6, li pase 3; CTAP acute cholecystitis; GBUS acute cholecystitis.; Provided with 500 mL NSS, Zofran 4 mg IV, metronidazole 50 mg IV, ketorolac 15 mg IV, and ceftriaxone 2 g IV in ED. Please see Dr. Del Angel's attestation for adjustments/additions to treatment plan. Discharge Exam General: NAD, VS: BP 165/97; P66; R18; T36.5C Resp: normal respiratory effort Extremities: Moves all extremities, no edema Neuro: A&O x3 Skin: intact, no lesions noted Discharge Plan Discharge Items Patient Disposition: Home - Self-Care Reason For Visit: ACUTE CHOLECYSTITIS Discharge Diagnosis: laparoscopic cholecystectomy Condition on Discharge: Fair Activity: Per Instructions section Lifting: No more than 10 pounds Bathing Comment: may shower starting 07/17/25; no soaking in tubs/pools x 2 weeks Exercise/Sports: Wait until after follow-up appointment Driving/Machine Use: no driving while taking narcotics for pain Non-emergency contact: Primary Care Provider and Surgeon Call non-emergency contact if: you have any medication questions, your symptoms worsen, your pain is not controlled, you have a fever, your temperature is above 101.5, your wound has increased redness, your wound has increased drainage and your wound pain has increased Follow-up/Referrals: ProJasvir MD [Primary Care Provider] - 07/28/25 11:00 am Claudio Holt DO, FACS [Physician] - (Please call to schedule follow up in the office in 2 weeks ) Diet: Regular Addtl Attending Provider Instructions: SPECIAL CARE INSTRUCTIONS: * Please take Augmentin twice daily for 7 days. First dose begins this evening, 07/18. You may take with food to avoid GI upset. * You have skin glue over your incisions called dermabond. you may shower with this on. It will tend to dissolve and fall off within a couple weeks. Do not pick at the skin glue * You may shower 07/17 . NO soaking in pools or baths for 2 weeks * No lifting greater than 10lbs. No strenuous exercise until cleared by surgeon. Light walking is accepted. * No driving while taking narcotic pain medication; wait at least 3 days * No drinking alcohol while taking narcotic pain medication * May use Ibuprofen/Tylenol over the counter for pain as tolerated. Do not exceed 3grams of Tylenol per 24 hours. For severe pain, please use Oxycodone 5mg every 4 hours as needed. It does appear that the oxycodone was sent in to [facility] on 07/13. * Expect some swelling and bruising. * Diet- you may resume your regular diet Call your doctor if: * Temperature above 101 degrees, nausea/vomiting, fever/chills * Pain not relieved by pain medicine ordered * There is increased drainage or redness from any incision * You have any unanswered questions or concerns [phone]. FOLLOW UP VISIT: If not already scheduled, please call the office for a follow-up visit. Office Pending Studies at Discharge: Yes Studies:: surgical pathology Stand-Alone Forms: My [facility], Smoking Cessation Medications and DC Order Prescriptions: New amoxicillin-pot clavulanate 875-125 mg tablet 1 tab PO BID Qty: 14 0RF Continued cholecalciferol (vitamin D3) 50 mcg (2,000 unit) capsule 50 mcg PO DAILY Rx Instructions: ON HOLD PER PT doxycycline hyclate 100 mg capsule 100 mg PO BID PRN (Reason: tick bites) Rx Instructions: take with food .. no dairy products with meds as directed losartan 100 mg tablet 100 mg PO QAM Qty: 90 3RF gabapentin 100 mg capsule 100 mg PO HS Qty: 30 3RF carvedilol 6.25 mg tablet 6.25 mg PO BID Qty: 60 5RF Rx Instructions: must administer with a meal/food [facility] Formula 5-1-7.5 mg capsule 1 cap PO DAILY Rx Instructions: ON HOLD cyanocobalamin (vitamin B-12) [Vitamin B-12] 1,000 mcg Tablet 1,000 mcg PO QAM Rx Instructions: ON HOLD metoclopramide HCl 5 mg tablet 5 mg PO DAILY PRN (Reason: nausea and vomiting) Qty: 20 0RF oxycodone 5 mg tablet 5 mg PO Q6H PRN (Reason: pain) Qty: 10 0RF rosuvastatin 20 mg tablet 20 mg PO HS Discontinued amoxicillin-pot clavulanate 875-125 mg tablet 1 tab PO BID Qty: 14 0RF Rx Instructions: STARTED 07/13/25 FOR 7 DAYS Discharge Orders: Discharge Order (Routine); Ordered 07/18/25 Ordered By: Atiya Graff/Other Patient Handouts: Having Laparoscopic Cholecystectomy Admission Data Admit Date/Time: 07/14/25 20:41 Attending Provider: Arjun Jack Admit Provider: Fredy Del Angel Primary Care Provider: Jasvir Garber Other Providers: Daniel Montes; Fredy Del Angel Other Interventions: Discharge Summary Assessment (RN) Last Done: 07/18/25 10:44 Hospital Stay Data Consultations 07/14/25 19:14 Consult General Surgery Stat 07/14/25 19:17 ED Decision to Admit Stat Procedures Performed Operation Date: 07/16/25 10:15 Actual Procedures p Laparoscopic Cholecystectomy(Not Applicable) - Claudio Holt DO, FACS Diagnostic Imagining Performed 07/14/25 16:55 CT abd pelvis IV con only Stat 07/14/25 17:11 US gallbladder Stat Pending Results Patient Have Any Pending Studies at Discharge: Yes Discharge Instructions Given to Patient (Per Discharging Provider) SPECIAL CARE INSTRUCTIONS: * Please take Augmentin twice daily for 7 days. First dose begins this evening, 07/18. You may take with food to avoid GI upset. * You have skin glue over your incisions called dermabond. you may shower with this on. It will tend to dissolve and fall off within a couple weeks. Do not pick at the skin glue * You may shower 07/17 . NO soaking in pools or baths for 2 weeks * No lifting greater than 10lbs. No strenuous exercise until cleared by surgeon. Light walking is accepted. * No driving while taking narcotic pain medication; wait at least 3 days * No drinking alcohol while taking narcotic pain medication * May use Ibuprofen/Tylenol over the counter for pain as tolerated. Do not exceed 3grams of Tylenol per 24 hours. For severe pain, please use Oxycodone 5mg every 4 hours as needed. It does appear that the oxycodone was sent in to [facility] on 07/13. * Expect some swelling and bruising. * Diet- you may resume your regular diet Call your doctor if: * Temperature above 101 degrees, nausea/vomiting, fever/chills * Pain not relieved by pain medicine ordered * There is increased drainage or redness from any incision * You have any unanswered questions or concerns [phone]. FOLLOW UP VISIT: If not already scheduled, please call the office for a follow-up visit. Office Supervising Physician Co-Signing Physician Notes The patient was not seen by me. The chart was reviewed. Case discussed with DIAMANTE Álvarez. Agree with assessment and plan Total Time Total Time Spent Total Time Spent (In Minutes): 50 Total Time Includes: Examination of the Patient, Discharge Planning, Medication Reconciliation and Communication With Other Providers Coding Level of Care Code 83800 INP/OBS DISCH >30 MIN Diagnoses Cholecystitis, acute K81.0
--- NOTE | 2025-07-18 10:36 | Surgery Progress Note ---
Date of Service July 18, 2025 Assessment & Plan (1) S/P laparoscopic cholecystectomy: Plan: POD #2 laparoscopic cholecystectomy for gangrenous cholecystitis DC [place] drain DC to home Follow-up in general surgery clinic in 2 weeks 1 week antibiotics APAP and/or NSAIDs as needed pain, oxycodone Rx for breakthrough pain Wound care instructions and activity restrictions reviewed Return precautions given, call with questions or concerns (2) Cholecystitis, acute: Admission and Anticipated Discharge Date Admission Date: July 14, 2025 Subjective POD #2 laparoscopic cholecystectomy for gangrenous cholecystitis. Continues to feel well, tolerating diet. Anxious to go home. Physical Exam Constitutional: WD/WN, vitals as above Respiratory: normal respiratory effort, lungs clear to auscultation Cardiovascular: RRR, no murmur, no edema Gastrointestinal (Abdomen): normal bowel sounds, soft, nontender, no hepatosplenomegaly Inspection/Auscultation: + abdominal surgical incision (Healing well) [place] serosanguineous Results & Data Vital Signs (Past 12 Hours) Vital Signs Temp Pulse Resp BP Pulse Ox O2 Del Method 07/18/25 08:09 36.5 C 66 18 165/97 H 94 Room Air 07/17/25 23:09 36.5 C 66 16 152/84 H 93 Room Air Laboratory Results Laboratory Results - last 24 hr 07/18/25 05:26 WBC 11.01 H RBC 4.29 L Hgb 14.0 Hct 38.9 L MCV 90.7 MCH 32.6 MCHC 36.0 RDW Std Deviation 43.0 RDW Coeff of Andrea 13.0 Plt Count 181 MPV 9.7 Immature Gran % (Auto) 0.5 Neut % (Auto) 84.0 Lymph % (Auto) 6.5 [place] % (Auto) 8.8 Eos % (Auto) 0.1 Baso % (Auto) 0.1 Neut # (Auto) 9.24 H Lymph # (Auto) 0.72 L [place] # (Auto) 0.97 H Eos # (Auto) 0.01 Baso # (Auto) 0.01 Immature Gran # (Auto) 0.06 Sodium 139 Potassium 4.3 Chloride 105 Carbon Dioxide 29 Anion Gap 5 BUN 25 H Creatinine 0.85 Est Cr Clr Drug Dosing 98.0 eGFR 90.06 BUN/Creatinine Ratio 29.4 H Glucose 140 H Calcium 8.6 Total Bilirubin 0.8 AST 35 ALT 46 Alkaline Phosphatase 53 Total Protein 5.9 L Albumin 3.4 Globulin 2.5 Albumin/Globulin Ratio 1.4 PG Care Time/CCT Total # of Minutes Spent Total Time Spent with Patient: Total time spent is greater than 50% in coordination of care (as documented) at patient's floor/unit and/or counseling patient: Coding Level of Care Code 89257 Post Operative Follow-Up Diagnoses S/P laparoscopic cholecystectomy Z90.49 Cholecystitis, acute K81.0
== END 2025-07-18 11:02 | disposition home or self-care (01) | DRG 419 ==
LOC: ED 16:34 → 3E 20:41 → SUATTDRO 20:41 → 3E 22:00